=== PATIENT | female | born 1980 | race Caucasian/White ===

== ENCOUNTER 2017-05-09 12:38 | Inpatient (IN) | payer SELFPAY ==
[2017-05-09] MEDS ORDERED: ASPIRIN PO ONE (12:52)
[2017-05-09] MEDS ORDERED: MORPHINE IV ONE (13:24)
[2017-05-09] MEDS ORDERED: NACL 0.9% 1000 ML 1,000 ML IV ONE ×2 (13:24→13:25)
[2017-05-09] MEDS ORDERED: ZOFRAN IV ONE (13:24)
--- NOTE | 2017-05-09 13:30 | Emergency Department Report ---
ED General Adult HPI - General Chief complaint: Chest Pain Stated complaint: ABDOMINAL PAIN,SOB Time Seen by Provider: 05/09/17 13:18 Source: patient Mode of arrival: Ambulatory Limitations: No Limitations - History of Present Illness Initial comments: Patient is 36 years old female history of type 1 diabetes, on insulin, she missed taking insulin for 2-3 days, she just got her insulin back yesterday. Patient presented to the ER with nausea vomiting and chest pain associated with abdominal pain. Patient denied any fever, no cough, no urinary symptoms. -: Gradual, days(s) Radiation: abdomen Severity scale (0 -10): 8 Consistency: constant Associated Symptoms: chest pain - Related Data Home Medications Medication Instructions Recorded Confirmed Last Taken No Known Home Medications [No 05/09/17 05/09/17 Unknown Reported Home Medications] Allergies Allergy/AdvReac Type Severity Reaction Status Date / Time No Known Allergies Allergy Unverified 05/09/17 12:51 ED Review of Systems ROS: Stated complaint: ABDOMINAL PAIN,SOB Other details as noted in HPI Comment: All other systems reviewed and negative Constitutional: denies: chills, fever Respiratory: denies: cough, orthopnea, shortness of breath, SOB with exertion, SOB at rest, wheezing Cardiovascular: chest pain, palpitations. denies: dyspnea on exertion, orthopnea, edema, syncope, paroxysmal nocturnal dyspnea Gastrointestinal: abdominal pain, nausea, vomiting. denies: diarrhea, constipation, hematemesis, melena, hematochezia Musculoskeletal: denies: back pain, joint swelling Neurological: weakness (generalized). denies: headache, numbness, paresthesias ED Past Medical Hx - Past Medical History Previous Medical History?: No - Surgical History Past Surgical History?: No - Social History Smoking Status: Never Smoker - Medications Home Medications: Home Medications Medication Instructions Recorded Confirmed Last Taken Type No Known Home Medications [No 05/09/17 05/09/17 Unknown History Reported Home Medications] ED Physical Exam - General Limitations: No Limitations General appearance: anxious - Head Head exam: Present: atraumatic, normal inspection - Eye Eye exam: Present: normal appearance, PERRL - ENT ENT exam: Present: normal exam, normal orophraynx, mucous membranes dry - Neck Neck exam: Present: normal inspection, full ROM - Respiratory Respiratory exam: Present: normal lung sounds bilaterally. Absent: respiratory distress, wheezes, rales, rhonchi, chest wall tenderness, accessory muscle use, decreased breath sounds, prolonged expiratory - Cardiovascular Cardiovascular Exam: Present: tachycardia - GI/Abdominal GI/Abdominal exam: Present: soft, normal bowel sounds. Absent: distended, tenderness, guarding, rebound, rigid, organomegaly, mass, bruit, pulsatile mass , hernia - Extremities Exam Extremities exam: Present: normal inspection, full ROM, normal capillary refill - Back Exam Back exam: Present: normal inspection, full ROM. Absent: tenderness, CVA tenderness (R), CVA tenderness (L), muscle spasm, paraspinal tenderness, vertebral tenderness - Neurological Exam Neurological exam: Present: alert, oriented X3, CN II-XII intact, normal gait, reflexes normal. Absent: motor sensory deficit - Skin Skin exam: Present: warm, dry, normal color ED Course Vital Signs 05/09/17 05/09/17 05/09/17 13:06 15:54 16:01 Pulse Rate 138 H 108 H 144 H Respiratory 24 29 H 26 H Rate Blood Pressure Blood Pressure 136/69 [Right] O2 Sat by Pulse 100 100 Oximetry 05/09/17 05/09/17 05/09/17 16:15 16:45 17:00 Pulse Rate 151 H 143 H Respiratory 38 H 31 H Rate Blood Pressure Blood Pressure [Right] O2 Sat by Pulse 99 100 100 Oximetry 05/09/17 05/09/17 05/09/17 17:15 17:31 17:45 Pulse Rate 139 H 144 H 142 H Respiratory 26 H 29 H 30 H Rate Blood Pressure Blood Pressure [Right] O2 Sat by Pulse 100 99 100 Oximetry 05/09/17 05/09/17 05/09/17 18:00 18:15 18:30 Pulse Rate 138 H 141 H 143 H Respiratory 29 H 33 H 31 H Rate Blood Pressure 160/79 160/79 157/70 Blood Pressure [Right] O2 Sat by Pulse 100 100 100 Oximetry 05/09/17 05/09/17 05/09/17 18:45 19:01 19:15 Pulse Rate 142 H 142 H 148 H Respiratory 33 H 23 26 H Rate Blood Pressure 156/63 153/82 153/82 Blood Pressure [Right] O2 Sat by Pulse 99 100 96 Oximetry 05/09/17 05/09/17 05/09/17 19:31 19:45 20:00 Pulse Rate 148 H 148 H 142 H Respiratory 32 H 31 H 28 H Rate Blood Pressure 153/82 153/82 122/102 Blood Pressure [Right] O2 Sat by Pulse 100 100 99 Oximetry 05/09/17 05/09/17 05/09/17 20:15 20:30 20:45 Pulse Rate 145 H 147 H 149 H Respiratory 27 H 24 36 H Rate Blood Pressure 122/102 136/56 136/56 Blood Pressure [Right] O2 Sat by Pulse 100 100 100 Oximetry 05/09/17 05/09/17 05/09/17 21:01 21:15 21:31 Pulse Rate 143 H 143 H 151 H Respiratory 30 H 27 H 27 H Rate Blood Pressure 143/57 143/57 115/51 Blood Pressure [Right] O2 Sat by Pulse 100 99 100 Oximetry 05/09/17 05/09/17 05/09/17 21:45 22:01 22:57 Pulse Rate 152 H 144 H 151 H Respiratory 34 H 25 H 30 H Rate Blood Pressure 115/51 115/51 Blood Pressure [Right] O2 Sat by Pulse 100 100 Oximetry 05/09/17 05/09/17 05/09/17 23:00 23:15 23:31 Pulse Rate 151 H 151 H 147 H Respiratory 31 H 31 H 24 Rate Blood Pressure 153/82 Blood Pressure [Right] O2 Sat by Pulse Oximetry 05/09/17 05/10/17 05/10/17 23:45 00:01 00:15 Pulse Rate 154 H 151 H 155 H Respiratory 19 27 H 31 H Rate Blood Pressure Blood Pressure [Right] O2 Sat by Pulse Oximetry ED Medical Decision Making - Lab Data Result diagrams: 05/10/17 05:00 05/10/17 05:00 - EKG Data -: EKG Interpreted by Mn EKG shows normal: sinus rhythm Rate: tachycardia - EKG Data Interpretation: no acute changes - Radiology Data Radiology results: report reviewed Referring Physician: MADI MUHAMMAD Patient Name: ANTHONY PHAM Date of : 1980 Sex: Female Report Date: 2017-05-09 Report Status: Finalized Findings [facility] [address] [place] [address] XRay Report Signed Patient: ANTHONY PHAM MR#: [id number] : 1980 Acct:[id number] Age/Sex: 36 / F ADM Date: 05/09/17 Loc: ED Attending Dr: Ordering Physician: MADI MUHAMMAD Date of Service: 05/09/17 Procedure(s): XR chest 1V ap Accession Number(s): [id number] cc: MADI MUHAMMAD Fluoro Time In Minutes: AP CHEST: HISTORY: chest pain AP view of the chest demonstrates a normal mediastinal and cardiac contour with clear lungs and normal bony and soft tissue structures. IMPRESSION: Unremarkable AP chest. Transcribed By: TTR Dictated By: ANN MARCUM JR, MD Electronically Authenticated By: ANN MARCUM JR, MD Signed Date/Time: 05/09/171427 DD/ 27 TD/TT: 05/09/171427 - Medical Decision Making I discussed patient with Dr. Breaux, I have presented the patient to him,he agreed to admit the patient to his service Critical Care Time: Yes Critical care time in (mins) excluding proc time.: 35 Critical care attestation.: If time is entered above; I have spent that time in minutes in the direct care of this critically ill patient, excluding procedure time. ED Disposition Clinical Impression: DKA (diabetic ketoacidoses) Disposition: OP ADMIT IP TO THIS HOSP Is pt being admited?: Yes Condition: Stable
[2017-05-09 14:05] LABS: BUN/Creatinine Ratio 19; Blood Urea Nitrogen 15 mg/dL (7-17); Calcium 8.4 mg/dL (8.4-10.2); Hemolysis Index 11
[2017-05-09] MEDS ORDERED: D50W (25GM) Syringe IV PRN ×2 (14:18→15:34)
--- NOTE | 2017-05-09 14:34 | XRay Report ---
AP CHEST: HISTORY: chest pain AP view of the chest demonstrates a normal mediastinal and cardiac contour with clear lungs and normal bony and soft tissue structures. IMPRESSION: Unremarkable AP chest.
[2017-05-09 15:03] LABS: Mean Corpuscular HGB Conc 30 % (30-34); Mean Corpuscular Hemoglobin 26 pg (28-32); Mean Corpuscular Volume 87 fl (79-97); Platelet Count 402 K/mm3 (140-440); Red Blood Count 5.71 M/mm3 (3.65-5.03)
[2017-05-09 15:04] LABS: Hematocrit 49.5 % (30.3-42.9)
[2017-05-09 15:16] LABS: Magnesium 2.3 mg/dL (1.7-2.3)
[2017-05-09 15:27] LABS: BUN/Creatinine Ratio 20; Blood Urea Nitrogen 16 mg/dL (7-17); Calcium 8.7 mg/dL (8.4-10.2); Hemolysis Index 53
[2017-05-09] MEDS ORDERED: NACL 0.9% 1000 ML 3,000 ML IV ONE (15:34)
[2017-05-09] MEDS ORDERED: MILK OF MAGNESIA PO PRN (15:36)
[2017-05-09] MEDS ORDERED: DULCOLAX PR PRN (15:36)
[2017-05-09] MEDS ORDERED: ALUM-MAG HYDROX-SIMETH 200-200-20MG/5ML PO PRN (15:36)
[2017-05-09] MEDS ORDERED: D5W/0.45% NACL/KCL 20 MEQ 20 MEQ/1,000 ML BAG IV SCH (16:00)
[2017-05-09 16:02] LABS: Band Neutrophils # (Manual) 0.3 K/mm3; Basophils % (Manual) 0 % (0.0-1.8); Eosinophils % (Manual) 0 % (0.0-4.3); Total Cells Counted 100
[2017-05-09 16:03] LABS: Giant Platelets Rare; Toxic Vacuolation Few
[2017-05-09 16:04] LABS: Platelet Estimate Cons
[2017-05-09] MEDS: NovoLIN R 100 UNITS in NACL 0.9% 99 ML IV SCH (16:45)
--- NOTE | 2017-05-09 16:59 | History and Physical Report ---
History of Present Illness Date of examination: 05/09/17 Date of admission: 05/09/17 Chief complaint: DKA History of present illness: Patient is a 36 year old female who is 2 months post and with hx of type 1 DM presenting to the ER with nausea, vomiting, chest pain and abdominal pain.. Most information obtained from the patient chart and also limited from patient and due to patients clinical condition. Although the ED documentation reports that patient missed 2-3 days of insulin. The patients states she took insulin yesterday. Her chest pain and abdominal pain she states started following nausea with vomiting. she rates it a 3/10 in intensity with no radiation. She rfeports no other medical condition but unable to give me information on her labor and delivery due to her shortness of breath. She denies any fever, sick contact, diarrhea, blurry vision, polyurea or polydipsa Past History Past Medical History: diabetes Past Surgical History: No surgical history Social history: . denies: smoking, alcohol abuse, prescription drug abuse Family history: diabetes Medications and Allergies Allergies Allergy/AdvReac Type Severity Reaction Status Date / Time No Known Allergies Allergy Unverified 05/09/17 12:51 Home Medications Medication Instructions Recorded Confirmed Last Taken Type No Known Home Medications [No 05/09/17 05/09/17 Unknown History Reported Home Medications] Active Meds: Active Medications Al Hydrox/Mg Hydrox/Simethicone (Alum-Mag Hydrox-Simeth 053-004-66is/5ml) 30 ml PO Q4H PRN PRN Reason: Indigestion Bisacodyl (Dulcolax) 10 mg UT QDAY PRN PRN Reason: constipation unrelieved by MOM Dextrose (D50w (25gm) Syringe) 0 ml IV PRN PRN PRN Reason: Hypoglycemia Dextrose (D50w (25gm) Syringe) 0 ml IV PRN PRN PRN Reason: Hypoglycemia Heparin Sodium (Porcine) (Heparin) 5,000 unit SUB-Q Q8HR MAYTE Insulin Human Regular 100 (units/ Sodium Chloride) 100 mls @ 1 mls/hr IV TITR MAYTE; 1 UNITS/HR PRN Reason: Protocol Piperacillin Sod/Tazobactam Sod (Zosyn/Ns 3.375gm/50ml) 3.375 gm in 50 mls @ 100 mls/hr IV Q6HR MAYTE Potassium Chloride/Dextrose/Sod Cl (D5w/0.45% Nacl/Kcl 20 Meq) 20 meq in 1,000 mls @ 125 mls/hr IV DIRECT MAYTE Sodium Chloride (Nacl 0.9% 1000 Ml) 3,000 mls @ 999 mls/hr IV BOLUS ONE Stop: 05/09/17 18:34 Insulin Human Regular 100 (units/ Sodium Chloride) 100 mls @ 1 mls/hr IV TITR MAYTE; 1 UNITS/HR PRN Reason: Protocol Magnesium Hydroxide (Milk Of Magnesia) 30 ml PO Q4H PRN PRN Reason: Constipation Review of Systems All systems: negative Constitutional: weakness, malaise, lethargy Ears, nose, mouth and throat: no ear discharge, no nasal congestion, no nasal discharge, no sinus pressure, no mouth pain, no dysphagia, no sore throat Cardiovascular: palpitations, lightheadedness, shortness of breath Respiratory: no cough, no cough with sputum, no excessive sputum Gastrointestinal: abdominal pain, nausea, vomiting, no diarrhea Musculoskeletal: no neck stiffness, no neck pain, no shooting arm pain, no arm numbness/tingling, no low back pain, no leg numbness/tingling Endocrine: no polyphagia, no excessive thirst, no polydipsia, no polyuria Hematologic/Lymphatic: no easy bruising Exam - Physical Exam Narrative exam: VITAL SIGNS: Reviewed. GENERAL: The patient appeared well nourished and normally developed. Vital signs as documented. HEAD: No signs of head trauma. EYES: Pupils are equal. Extraocular motions intact. EARS: Hearing grossly intact. MOUTH: Oropharynx is normal. NECK: No adenopathy, no JVD. CHEST: tachypnea Chest with clear breath sounds bilaterally. No wheezes, rales , or rhonchi. CARDIAC: Tachycardia rate and rhythm. S1 and S2, without murmurs, gallops, or rubs. VASCULAR: No Edema. Peripheral pulses normal and equal in all extremities. ABDOMEN: Soft, without detectable tenderness. No sign of distention. No rebound or guarding, and no masses palpated. Bowel Sounds normal. MUSCULOSKELETAL: Good range of motion of all major joints. Extremities without clubbing, cyanosis or edema. NEUROLOGIC EXAM: Alert and oriented x 3. No focal sensory or strength deficits. Speech normal. Follows commands. PSYCHIATRIC: Mood anxious SKIN: No rash or lesions. - Constitutional Vitals: Temp Pulse Resp BP Pulse Ox 138 H 24 136/69 100 05/09/17 13:06 05/09/17 13:06 05/09/17 13:06 05/09/17 13:06 Results - Labs CBC & Chem 7: 05/09/17 14:40 05/09/17 18:44 Labs: Laboratory Last Values WBC 32.8 K/mm3 (4.5-11.0) H 05/09/17 14:40 RBC 5.71 M/mm3 (3.65-5.03) H 05/09/17 14:40 Hgb 15.0 gm/dl (10.1-14.3) H 05/09/17 14:40 Hct 49.5 % (30.3-42.9) H 05/09/17 14:40 MCV 87 fl (79-97) 05/09/17 14:40 MCH 26 pg (28-32) L 05/09/17 14:40 MCHC 30 % (30-34) 05/09/17 14:40 RDW 14.0 % (13.2-15.2) 05/09/17 14:40 Plt Count 402 K/mm3 (140-440) 05/09/17 14:40 Lymph % (Auto) Retail Operations Manager 05/09/17 14:40 Keith % (Auto) Retail Operations Manager 05/09/17 14:40 Eos % (Auto) Retail Operations Manager 05/09/17 14:40 Baso % (Auto) Retail Operations Manager 05/09/17 14:40 Lymph # Retail Operations Manager 05/09/17 14:40 Keith # Retail Operations Manager 05/09/17 14:40 Eos # Retail Operations Manager 05/09/17 14:40 Baso # Retail Operations Manager 05/09/17 14:40 Add Manual Diff Complete 05/09/17 14:40 Total Counted 100 05/09/17 14:40 Seg Neutrophils % Retail Operations Manager 05/09/17 14:40 Seg Neuts % (Manual) 83.0 % (40.0-70.0) H 05/09/17 14:40 Band Neutrophils % 1.0 % 05/09/17 14:40 Lymphocytes % (Manual) 8.0 % (13.4-35.0) L 05/09/17 14:40 Reactive Lymphs % (Man) 0 % 05/09/17 14:40 Monocytes % (Manual) 8.0 % (0.0-7.3) H 05/09/17 14:40 Eosinophils % (Manual) 0 % (0.0-4.3) 05/09/17 14:40 Basophils % (Manual) 0 % (0.0-1.8) 05/09/17 14:40 Metamyelocytes % 0 % 05/09/17 14:40 Myelocytes % 0 % 05/09/17 14:40 Promyelocytes % 0 % 05/09/17 14:40 Blast Cells % 0 % 05/09/17 14:40 Nucleated RBC % Not Reportable 05/09/17 14:40 Seg Neutrophils # Retail Operations Manager 05/09/17 14:40 Seg Neutrophils # Man 27.2 K/mm3 (1.8-7.7) H 05/09/17 14:40 Band Neutrophils # 0.3 K/mm3 05/09/17 14:40 Lymphocytes # (Manual) 2.6 K/mm3 (1.2-5.4) 05/09/17 14:40 Abs React Lymphs (Man) 0.0 K/mm3 05/09/17 14:40 Monocytes # (Manual) 2.6 K/mm3 (0.0-0.8) H 05/09/17 14:40 Eosinophils # (Manual) 0.0 K/mm3 (0.0-0.4) 05/09/17 14:40 Basophils # (Manual) 0.0 K/mm3 (0.0-0.1) 05/09/17 14:40 Metamyelocytes # 0.0 K/mm3 05/09/17 14:40 Myelocytes # 0.0 K/mm3 05/09/17 14:40 Promyelocytes # 0.0 K/mm3 05/09/17 14:40 Blast Cells # 0.0 K/mm3 05/09/17 14:40 WBC Morphology Not Reportable 05/09/17 14:40 Hypersegmented Neuts Not Reportable 05/09/17 14:40 Hyposegmented Neuts Not Reportable 05/09/17 14:40 Hypogranular Neuts Not Reportable 05/09/17 14:40 Smudge Cells Not Reportable 05/09/17 14:40 Toxic Granulation Not Reportable 05/09/17 14:40 Toxic Vacuolation Few 05/09/17 14:40 Dohle Bodies Not Reportable 05/09/17 14:40 Pelger-Huet Anomaly Not Reportable 05/09/17 14:40 Yennifer Rods Not Reportable 05/09/17 14:40 Platelet Estimate Cons 05/09/17 14:40 Clumped Platelets Not Reportable 05/09/17 14:40 Plt Clumps, EDTA Not Reportable 05/09/17 14:40 Large Platelets Not Reportable 05/09/17 14:40 Giant Platelets Rare 05/09/17 14:40 Platelet Satelliting Not Reportable 05/09/17 14:40 Plt Morphology Comment Not Reportable 05/09/17 14:40 RBC Morphology Not Reportable 05/09/17 14:40 Dimorphic RBCs Not Reportable 05/09/17 14:40 Polychromasia Not Reportable 05/09/17 14:40 Hypochromasia Not Reportable 05/09/17 14:40 Poikilocytosis Not Reportable 05/09/17 14:40 Anisocytosis Not Reportable 05/09/17 14:40 Microcytosis Not Reportable 05/09/17 14:40 Macrocytosis Not Reportable 05/09/17 14:40 Spherocytes Not Reportable 05/09/17 14:40 Pappenheimer Bodies Not Reportable 05/09/17 14:40 Sickle Cells Not Reportable 05/09/17 14:40 Target Cells Not Reportable 05/09/17 14:40 Tear Drop Cells Not Reportable 05/09/17 14:40 Ovalocytes Not Reportable 05/09/17 14:40 Helmet Cells Not Reportable 05/09/17 14:40 Witt-Mccoll Bodies Not Reportable 05/09/17 14:40 [place] Rings Not Reportable 05/09/17 14:40 Ulysses Cells Not Reportable 05/09/17 14:40 Bite Cells Not Reportable 05/09/17 14:40 Crenated Cell Not Reportable 05/09/17 14:40 Elliptocytes Not Reportable 05/09/17 14:40 Acanthocytes (Spur) Not Reportable 05/09/17 14:40 Rouleaux Not Reportable 05/09/17 14:40 Hemoglobin C Crystals Not Reportable 05/09/17 14:40 Schistocytes Not Reportable 05/09/17 14:40 Malaria parasites Not Reportable 05/09/17 14:40 Abisai Bodies Not Reportable 05/09/17 14:40 Hem Pathologist Commnt No 05/09/17 14:40 D-Dimer 481.41 ng/mlDDU (0-234) H 05/09/17 14:40 Sodium 140 mmol/L (137-145) 05/09/17 14:40 Potassium 5.2 mmol/L (3.6-5.0) H 05/09/17 14:40 Chloride 98.6 mmol/L (98-107) 05/09/17 14:40 Carbon Dioxide 3 mmol/L (22-30) L* 05/09/17 14:40 Anion Gap 44 mmol/L 05/09/17 14:40 BUN 16 mg/dL (7-17) 05/09/17 14:40 Creatinine 0.8 mg/dL (0.7-1.2) 05/09/17 14:40 Estimated GFR > 60 ml/min 05/09/17 14:40 BUN/Creatinine Ratio 20 % 05/09/17 14:40 Glucose 343 mg/dL (65-100) H 05/09/17 14:40 POC Glucose 334 (70-105) H 05/09/17 16:42 Calcium 8.7 mg/dL (8.4-10.2) 05/09/17 14:40 Phosphorus 6.70 mg/dL (2.5-4.5) H 05/09/17 14:40 Magnesium 2.30 mg/dL (1.7-2.3) 05/09/17 14:40 Troponin T < 0.010 ng/mL (0.00-0.029) 05/09/17 14:40 HCG, Qual Negative (Negative) 05/09/17 14:40 - Imaging and Cardiology Chest x-ray: image reviewed (no acute pathology) Assessment and Plan Assessment and plan: Patient is a 36 year old female who is 2 months post and with hx of type 1 DM presenting to the ER with nausea, vomiting, chest pain and abdominal pain.. Most information obtained from the patient chart and also limited from patient and due to patients clinical condition. Although the ED documentation reports that patient missed 2-3 days of insulin. The patients states she took insulin yesterday. Her chest pain and abdominal pain she states started following nausea with vomiting. she rates it a 3/10 in intensity with no radiation. She rfeports no other medical condition but unable to give me information on her labor and delivery due to her shortness of breath. DKA Uncontrolled DM with hyperglycemia Acute Respiratory failure Severe Metabolic Acidosis SIRS secondary to DKA Hypertryglycerdemia 2 months post Plan: Admit to ICU DKA protocol, Q1H ACCUCHECKS, Insulin Drip. Replace Electrolytes Start on Bicarb Drip Critical care consult Give 3 Additional liters of fluids Continue Abx Check cook cultures ct CHEST R/O PE DVT/GI prophy Case discussed in detail with patient and spouse. The high probability of a clinically significant, sudden or life threatening deterioration of the [pulmonary, Endocrine ] system(s) required my full and direct attention, intervention and personal management. The aggregate critical care time was [35] minutes. This time is in addition to time spent performing reported procedures but includes the following: [x] Data Review and interpretation [x] Patient assessment and monitoring of vital signs [x] Documentation [x] Medication orders and management Advance Directives: Yes Plan of care discussed with patient/family: Yes
[2017-05-09] MEDS: ZOSYN/NS 3.375GM/50ML 3.375 GM/50 ML BAG IV SCH (18:50)
[2017-05-09 18:56] LABS: Bacteria,Urine 1+ /HPF (Negative); Bilirubin,Urine NEG (Negative); Blood,Urine SM (Negative); Color,Urine Yellow (Yellow); Mucus,Urine FEW /HPF; Nitrite,Urine NEG (Negative); Urobilinogen,Urine < 2.0 mg/dL (<2.0)
[2017-05-09] MEDS ORDERED: SODIUM BICARBONATE IV SCH ×4 (19:00→20:00)
[2017-05-09] MEDS ORDERED: SODIUM BICARBONATE IV ONE (19:02)
[2017-05-09 19:17] LABS: Microalbumin/Creatinine Ratio 1286.6 ug/mg
[2017-05-09 19:32] LABS: BUN/Creatinine Ratio 24; Blood Urea Nitrogen 19 mg/dL (7-17); Chol/HDL Ratio 4.91 %; HDL Cholesterol 47 mg/dL (40-59); Hemolysis Index 24; LDL Cholesterol,Direct TNR mg/dL (50-130)
[2017-05-09] MEDS ORDERED: NOVOLOG SUB-Q ONE (20:00)
[2017-05-09] MEDS ORDERED: VANCOMYCIN VIAL IV ONE (20:41)
[2017-05-09] MEDS ORDERED: SODIUM BICARBONATE 50 MEQ in NACL 0.9% 1000 ML 1,000 ML IV SCH (21:00)
[2017-05-09] MEDS ORDERED: VANCOMYCIN PHARMACY TO DOSE IV SCH (21:00)
[2017-05-09] MEDS ORDERED: VANCOMYCIN 1,250 MG in NACL 0.9% 250ML 250 ML IV ONE (21:15)
[2017-05-09 21:20] LABS: BUN/Creatinine Ratio 20; Blood Urea Nitrogen 18 mg/dL (7-17); Calcium 7.7 mg/dL (8.4-10.2); Hemolysis Index 7
--- NOTE | 2017-05-09 23:03 | Cat Scan Report ---
FINAL REPORT PROCEDURE: CT ABDOMEN PELVIS W CON TECHNIQUE: Computerized axial tomography of the abdomen and pelvis was performed after the IV injection of iodinated nonionic contrast. HISTORY: PE COMPARISON: No prior studies are available for comparison. FINDINGS: Visualized lower thorax: No significant abnormality. Liver: Normal size and attenuation. Spleen: Normal size and attenuation. Gallbladder and biliary system: Normal. Pancreas: Normal. Adrenals: Normal. Kidneys: Normal. GI tract: There is no bowel obstruction, colitis or enteritis. The appendix is normal.. Lymph nodes and mesentery: Normal. Vasculature: Normal. Bladder: Normal. Reproductive organs: The uterus is normal in size. There is a 3 centimeter fibroid in the uterine fundus. There is a 2 centimeter cyst in the left ovary.. Peritoneum: There is no ascites or free air, abscess or adenopathy.. Musculoskeletal structures: No significant abnormality. Other: None. IMPRESSION: There is no bowel obstruction, colitis or enteritis. The appendix is normal.. The uterus is normal in size. There is a 3 centimeter fibroid in the uterine fundus. There is a 2 centimeter cyst in the left ovary.. There is no ascites or free air, abscess or adenopathy..
--- NOTE | 2017-05-09 23:04 | Cat Scan Report ---
FINAL REPORT PROCEDURE: CT ANGIO CHEST TECHNIQUE: Computerized axial tomographic angiography of the chest and pulmonary arteries was performed after the IV injection of iodinated nonionic contrast. The image data was postprocessed using maximum intensity projection (MIP) and 2-dimensional multiplanar reformatted (MPR) techniques. The examination is specifically tailored to the evaluation of the pulmonary arteries per clinical request. HISTORY: Short of breath 786.09, chest pain 786.50, PE COMPARISON: No prior studies are available for comparison. FINDINGS: Heart and pericardium: Normal. Thoracic aorta: Normal. Pulmonary vasculature: Normal. No pulmonary emboli. Lymph nodes: No enlarged thoracic lymph nodes. Lungs: Lungs are clear and expanded.. Pleural space: No effusion, thickening, or pneumothorax. Musculoskeletal structures: No significant abnormality. Upper abdominal structures: No significant abnormality. IMPRESSION: There is no demonstrated pulmonary embolism. There is no thoracic aortic aneurysm or dissection.. Lungs are clear.
[2017-05-09 23:54] LABS: BUN/Creatinine Ratio 20; Blood Urea Nitrogen 20 mg/dL (7-17); Calcium 7.7 mg/dL (8.4-10.2); Hemolysis Index 0
[2017-05-10] MEDS ORDERED: SODIUM BICARBONATE IV ONE (01:20)
[2017-05-10] MEDS ORDERED: SODIUM BICARBONATE PEDIATRIC ONE (01:21)
[2017-05-10] MEDS: ZOSYN/NS 3.375GM/50ML 3.375 GM/50 ML BAG IV SCH ×2 (04:03→06:48)
[2017-05-10] MEDS: HEPARIN SUB-Q SCH ×3 (04:04→22:00)
[2017-05-10] MEDS: SODIUM BICARBONATE IV SCH ×2 (04:40→04:45)
[2017-05-10 05:42] LABS: Mean Corpuscular HGB Conc 30 % (30-34); Mean Corpuscular Volume 85 fl (79-97); Platelet Count 213 K/mm3 (140-440); Red Blood Count 5.27 M/mm3 (3.65-5.03)
[2017-05-10 05:43] LABS: Hemoglobin 13.7 gm/dl (10.1-14.3); Mean Corpuscular Hemoglobin 26 pg (28-32)
[2017-05-10 05:54] LABS: Calcium 7.7 mg/dL (8.4-10.2)
[2017-05-10] MEDS: NovoLIN R 100 UNITS in NACL 0.9% 99 ML IV SCH ×2 (06:15→15:32)
[2017-05-10 08:06] LABS: Calcium 7.8 mg/dL (8.4-10.2)
[2017-05-10] MEDS ORDERED: ZOFRAN IV ONE (10:20)
[2017-05-10] MEDS ORDERED: ZOFRAN ONE (10:22)
[2017-05-10] MEDS: VANCOMYCIN/NS 1 GM/250 ML 1 GM/250 ML BAG IV SCH ×2 (10:30→23:00)
--- NOTE | 2017-05-10 16:33 | Consultation ---
History of Present Illness Consult date: 05/10/17 Consult reason: tachycardia History of present illness: This patient is a 36-year-old woman who was presented to the hospital acutely ill. She has a white count of 32,000 on presentation, which has increased to 41 ,000. Her CO2 was only 3, consistent with severe metabolic acidosis. Glucose level was 343. On my review of the record, there are no temperature measurements recorded on this patient, but the rest of the clinical picture appears consistent with sepsis and severe metabolic acidosis. During her causing the emergency room, she has maintained a persistent sinus tachycardia, which prompted a cardiology consultation. The medical service also ordered an echocardiogram, which demonstrated well-preserved left ventricular systolic function with ejection fraction 55%. EKG is a sinus tachycardia at 140, otherwise normal ECG. Patient has no prior cardiac history. Past History Past Medical History: diabetes Past Surgical History: No surgical history Social history: . denies: smoking, alcohol abuse, prescription drug abuse Family history: diabetes Medications and Allergies Allergies Allergy/AdvReac Type Severity Reaction Status Date / Time No Known Allergies Allergy Unverified 05/09/17 12:51 Home Medications Medication Instructions Recorded Confirmed Last Taken Type No Known Home Medications [No 05/09/17 05/09/17 Unknown History Reported Home Medications] Active Meds: Active Medications Al Hydrox/Mg Hydrox/Simethicone (Alum-Mag Hydrox-Simeth 709-158-54qt/5ml) 30 ml PO Q4H PRN PRN Reason: Indigestion Bisacodyl (Dulcolax) 10 mg FL QDAY PRN PRN Reason: constipation unrelieved by MOM Dextrose (D50w (25gm) Syringe) 0 ml IV PRN PRN PRN Reason: Hypoglycemia Heparin Sodium (Porcine) (Heparin) 5,000 unit SUB-Q Q8HR MAYTE Last Admin: 05/10/17 07:41 Dose: Not Given Piperacillin Sod/Tazobactam Sod (Zosyn/Ns 3.375gm/50ml) 3.375 gm in 50 mls @ 100 mls/hr IV Q6HR MAYTE Last Admin: 05/10/17 06:48 Dose: 100 mls/hr Potassium Chloride/Dextrose/Sod Cl (D5w/0.45% Nacl/Kcl 20 Meq) 20 meq in 1,000 mls @ 125 mls/hr IV DIRECT MAYTE Last Admin: 05/10/17 06:40 Dose: 125 mls/hr Insulin Human Regular 100 (units/ Sodium Chloride) 100 mls @ 1 mls/hr IV TITR MAYTE; 1 UNITS/HR PRN Reason: Protocol Sodium Bicarbonate 50 meq/ (Sodium Chloride) 1,050 mls @ 100 mls/hr IV DIRECT MAYTE Last Admin: 05/10/17 10:26 Dose: 100 mls/hr Vancomycin HCl (Vancomycin/Ns 1 Gm/250 Ml) 1 gm in 250 mls @ 166.667 mls/hr IV Q12H MAYTE Last Admin: 05/10/17 10:30 Dose: Not Given Magnesium Hydroxide (Milk Of Magnesia) 30 ml PO Q4H PRN PRN Reason: Constipation Vancomycin HCl (Vancomycin Pharmacy To Dose) 1 each IV PKCONSULT MAYTE PRN Reason: Protocol Last Admin: 05/10/17 07:30 Dose: 1 each Review of Systems ROS unobtainable: due to mental status Physical Examination Vital Signs Pulse Resp BP Pulse Ox 138 H 24 136/69 100 05/09/17 13:06 05/09/17 13:06 05/09/17 13:06 05/09/17 13:06 General appearance: mild distress, other (patient is stuporous, but no acute respiratory distress) HEENT: Positive: PERRL Neck: Positive: neck supple Cardiac: Positive: Regular Rhythm Lungs: Positive: Decreased Breath Sounds Neuro: Positive: Grossly Intact Abdomen: Positive: Soft Female genitourinary: deferred Skin: Positive: Clear Extremities: Absent: edema Results 05/10/17 05:00 05/10/17 07:29 Lipids 05/09/17 Range/Units 18:44 Triglycerides 575 H (2-149) mg/dL Cholesterol 231 H (50-199) mg/dL HDL Cholesterol 47 (40-59) mg/dL Cholesterol/HDL Ratio 4.91 % CBC 05/10/17 Range/Units 05:00 WBC 41.8 H* (4.5-11.0) K/mm3 RBC 5.27 H (3.65-5.03) M/mm3 Hgb 13.7 (10.1-14.3) gm/dl Hct 45.0 H (30.3-42.9) % Plt Count 213 (140-440) K/mm3 Comprehensive Metabolic Panel 01/01/1605/09/17 05/09/17 Range/Units 18:44 21:00 23:06 Sodium 139 139 141 (137-145) mmol/L Potassium 4.6 4.3 3.7 (3.6-5.0) mmol/L Chloride 98.4 101.4 105.5 (98-107) mmol/L Carbon Dioxide 3 L* 4 L* 5 L* (22-30) mmol/L BUN 19 H 18 H 20 H (7-17) mg/dL Creatinine 0.8 0.9 1.0 (0.7-1.2) mg/dL Glucose 454 H 443 H 305 H (65-100) mg/dL Calcium 8.0 L 7.7 L 7.7 L (8.4-10.2) mg/dL 05/10/17 05/10/17 Range/Units 05:00 07:29 Sodium 139 140 (137-145) mmol/L Potassium 4.6 D 3.3 L D (3.6-5.0) mmol/L Chloride 99.3 101.1 (98-107) mmol/L Carbon Dioxide 4 L* 4 L* (22-30) mmol/L BUN 23 H 21 H (7-17) mg/dL Creatinine 1.1 1.1 (0.7-1.2) mg/dL Glucose 268 H 271 H (65-100) mg/dL Calcium 7.7 L 7.8 L (8.4-10.2) mg/dL EKG interpretations - Telemetry EKG Rhythm: Sinus Tachycardia Assessment and Plan - Patient Problems (1) Sinus tachycardia Current Visit: Yes Status: Acute Plan to address problem: Sinus tachycardia is a physiologic response to the patient's acute sepsis and severe metabolic acidosis. 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 No further cardiac workup or specific treatment for sinus tachycardia is necessary.
[2017-05-10 16:49] LABS: BUN/Creatinine Ratio 21; Blood Urea Nitrogen 21 mg/dL (7-17); Calcium 7.9 mg/dL (8.4-10.2); Hemolysis Index 85
--- NOTE | 2017-05-10 18:27 | Consultation ---
History of Present Illness Consult date: 05/10/17 Requesting physician: CRISTAL SOOD History of present illness: Patient is a 36 year old female who is 2 months post and with hx of type 1 DM presenting to the ER with nausea, vomiting, chest pain and abdominal pain.. Most information obtained from the patient chart and also limited from patient and due to patients clinical condition. Although the ED documentation reports that patient missed 2-3 days of insulin. The patients states she took insulin yesterday. Her chest pain and abdominal pain she states started following nausea with vomiting. she rates it a 3/10 in intensity with no radiation. She rfeports no other medical condition but unable to give me information on her labor and delivery due to her shortness of breath. She denies any fever, sick contact, diarrhea, blurry vision, polyurea or polydipsa Past History Past Medical History: diabetes Past Surgical History: No surgical history Social history: . denies: smoking, alcohol abuse, prescription drug abuse Family history: diabetes Medications and Allergies Allergies Allergy/AdvReac Type Severity Reaction Status Date / Time No Known Allergies Allergy Unverified 05/09/17 12:51 Home Medications Medication Instructions Recorded Confirmed Last Taken Type No Known Home Medications [No 05/09/17 05/09/17 Unknown History Reported Home Medications] Active Meds: Active Medications Al Hydrox/Mg Hydrox/Simethicone (Alum-Mag Hydrox-Simeth 588-547-76qn/5ml) 30 ml PO Q4H PRN PRN Reason: Indigestion Bisacodyl (Dulcolax) 10 mg [place] QDAY PRN PRN Reason: constipation unrelieved by MOM Dextrose (D50w (25gm) Syringe) 0 ml IV PRN PRN PRN Reason: Hypoglycemia Heparin Sodium (Porcine) (Heparin) 5,000 unit SUB-Q Q8HR MAYTE Last Admin: 05/10/17 07:41 Dose: Not Given Piperacillin Sod/Tazobactam Sod (Zosyn/Ns 3.375gm/50ml) 3.375 gm in 50 mls @ 100 mls/hr IV Q6HR MAYTE Last Admin: 05/10/17 06:48 Dose: 100 mls/hr Potassium Chloride/Dextrose/Sod Cl (D5w/0.45% Nacl/Kcl 20 Meq) 20 meq in 1,000 mls @ 125 mls/hr IV DIRECT MAYTE Last Admin: 05/10/17 06:40 Dose: 125 mls/hr Insulin Human Regular 100 (units/ Sodium Chloride) 100 mls @ 1 mls/hr IV TITR MAYTE; 1 UNITS/HR PRN Reason: Protocol Last Titration: 05/10/17 17:15 Dose: 4 units/hr, 4 mls/hr Sodium Bicarbonate 50 meq/ (Sodium Chloride) 1,050 mls @ 100 mls/hr IV DIRECT MAYTE Last Admin: 05/10/17 10:26 Dose: 100 mls/hr Vancomycin HCl (Vancomycin/Ns 1 Gm/250 Ml) 1 gm in 250 mls @ 166.667 mls/hr IV Q12H MAYTE Last Admin: 05/10/17 10:30 Dose: Not Given Magnesium Hydroxide (Milk Of Magnesia) 30 ml PO Q4H PRN PRN Reason: Constipation Vancomycin HCl (Vancomycin Pharmacy To Dose) 1 each IV PKCONSULT MAYTE PRN Reason: Protocol Last Admin: 05/10/17 07:30 Dose: 1 each Physical Examination Vital signs: Vital Signs Pulse Resp BP Pulse Ox 138 H 24 136/69 100 05/09/17 13:06 05/09/17 13:06 05/09/17 13:06 05/09/17 13:06 VITAL SIGNS: Reviewed. GENERAL: The patient appeared well nourished and normally developed. Vital signs as documented. HEAD: No signs of head trauma. EYES: Pupils are equal. Extraocular motions intact. EARS: Hearing grossly intact. MOUTH: Oropharynx is normal. NECK: No adenopathy, no JVD. CHEST: tachypnea Chest with clear breath sounds bilaterally. No wheezes, rales , or rhonchi. CARDIAC: Tachycardia rate and rhythm. S1 and S2, without murmurs, gallops, or rubs. VASCULAR: No Edema. Peripheral pulses normal and equal in all extremities. ABDOMEN: Soft, without detectable tenderness. No sign of distention. No rebound or guarding, and no masses palpated. Bowel Sounds normal. MUSCULOSKELETAL: Good range of motion of all major joints. Extremities without clubbing, cyanosis or edema. NEUROLOGIC EXAM: Alert and oriented x 3. No focal sensory or strength deficits. Speech normal. Follows commands. PSYCHIATRIC: Mood anxious SKIN: No rash or lesions. Results - Laboratory Findings CBC and BMP: 05/10/17 05:00 05/10/17 15:42 ABG POC ABG pH 6.917 (7.35-7.45) L 05/10/17 13:25 POC ABG pCO2 13.1 (35-45) L 05/10/17 13:25 POC ABG pO2 118 (80-105) H 05/10/17 13:25 POC ABG HCO3 2.7 05/10/17 13:25 POC ABG Total CO2 < 5 05/10/17 13:25 POC ABG O2 Sat 95 05/10/17 13:25 PT/INR, D-dimer D-Dimer 481.41 ng/mlDDU (0-234) H 05/09/17 14:40 Abnormal lab findings: Abnormal Labs 05/09/17 05/09/17 05/09/17 12:52 14:40 14:40 WBC 32.8 H RBC 5.71 H Hgb 15.0 H Hct 49.5 H MCH 26 L Seg Neuts % (Manual) 83.0 H Lymphocytes % (Manual) 8.0 L Monocytes % (Manual) 8.0 H Seg Neutrophils # Man 27.2 H Monocytes # (Manual) 2.6 H D-Dimer 481.41 H POC ABG pH POC ABG pCO2 POC ABG pO2 Potassium Carbon Dioxide 4 L* BUN Glucose 315 H POC Glucose Lactic Acid Calcium Phosphorus Triglycerides Cholesterol 05/09/17 05/09/17 05/09/17 14:40 14:40 15:54 WBC RBC Hgb Hct MCH Seg Neuts % (Manual) Lymphocytes % (Manual) Monocytes % (Manual) Seg Neutrophils # Man Monocytes # (Manual) D-Dimer POC ABG pH POC ABG pCO2 POC ABG pO2 Potassium 5.2 H Carbon Dioxide 3 L* BUN Glucose 343 H POC Glucose 343 H Lactic Acid Calcium Phosphorus 6.70 H Triglycerides Cholesterol 05/09/17 05/09/17 05/09/17 16:42 17:59 18:44 WBC RBC Hgb Hct MCH Seg Neuts % (Manual) Lymphocytes % (Manual) Monocytes % (Manual) Seg Neutrophils # Man Monocytes # (Manual) D-Dimer POC ABG pH POC ABG pCO2 POC ABG pO2 Potassium Carbon Dioxide 3 L* BUN 19 H Glucose 454 H POC Glucose 334 H 393 H Lactic Acid Calcium 8.0 L Phosphorus Triglycerides Cholesterol 05/09/17 05/09/1718 18:44 18:44 19:07 WBC RBC Hgb Hct MCH Seg Neuts % (Manual) Lymphocytes % (Manual) Monocytes % (Manual) Seg Neutrophils # Man Monocytes # (Manual) D-Dimer POC ABG pH POC ABG pCO2 POC ABG pO2 Potassium Carbon Dioxide BUN Glucose POC Glucose 365 H Lactic Acid 2.10 H* Calcium Phosphorus 6.30 H Triglycerides 575 H Cholesterol 231 H 05/09/17 05/09/17 05/09/17 21:00 21:55 23:06 WBC RBC Hgb Hct MCH Seg Neuts % (Manual) Lymphocytes % (Manual) Monocytes % (Manual) Seg Neutrophils # Man Monocytes # (Manual) D-Dimer POC ABG pH POC ABG pCO2 POC ABG pO2 Potassium Carbon Dioxide 4 L* 5 L* BUN 18 H 20 H Glucose 443 H 305 H POC Glucose 322 H Lactic Acid Calcium 7.7 L 7.7 L Phosphorus Triglycerides Cholesterol 05/10/17 05/10/17 05/10/17 00:23 03:54 05:00 WBC 41.8 H* RBC 5.27 H Hgb Hct 45.0 H MCH 26 L Seg Neuts % (Manual) Lymphocytes % (Manual) Monocytes % (Manual) Seg Neutrophils # Man Monocytes # (Manual) D-Dimer POC ABG pH POC ABG pCO2 POC ABG pO2 Potassium Carbon Dioxide BUN Glucose POC Glucose 305 H 272 H Lactic Acid Calcium Phosphorus Triglycerides Cholesterol 05/10/17 05/10/17 05/10/17 05:00 06:09 07:29 WBC RBC Hgb Hct MCH Seg Neuts % (Manual) Lymphocytes % (Manual) Monocytes % (Manual) Seg Neutrophils # Man Monocytes # (Manual) D-Dimer POC ABG pH POC ABG pCO2 POC ABG pO2 Potassium 3.3 L D Carbon Dioxide 4 L* 4 L* BUN 23 H 21 H Glucose 268 H 271 H POC Glucose 275 H Lactic Acid Calcium 7.7 L 7.8 L Phosphorus Triglycerides Cholesterol 05/10/17 05/10/17 05/10/17 08:46 11:40 12:49 WBC RBC Hgb Hct MCH Seg Neuts % (Manual) Lymphocytes % (Manual) Monocytes % (Manual) Seg Neutrophils # Man Monocytes # (Manual) D-Dimer POC ABG pH POC ABG pCO2 POC ABG pO2 Potassium Carbon Dioxide BUN Glucose POC Glucose 253 H 341 H 333 H Lactic Acid Calcium Phosphorus Triglycerides Cholesterol 05/10/17 05/10/17 05/10/17 13:25 15:32 15:42 WBC RBC Hgb Hct MCH Seg Neuts % (Manual) Lymphocytes % (Manual) Monocytes % (Manual) Seg Neutrophils # Man Monocytes # (Manual) D-Dimer POC ABG pH 6.917 L POC ABG pCO2 13.1 L POC ABG pO2 118 H Potassium 3.5 L Carbon Dioxide 4 L* BUN 21 H Glucose 179 H POC Glucose 191 H Lactic Acid Calcium 7.9 L Phosphorus Triglycerides Cholesterol Assessment and Plan DKA Uncontrolled DM with hyperglycemia Severe Metabolic Acidosis SIRS secondary to DKA Hypertriglyceridemia 2 months post Admit to ICU DKA protocol, Q1H ACCUCHECKS, Insulin Drip. Replace Electrolytes Start on Bicarb Drip Give 3 Additional liters of fluids Continue Abx Check cook cultures DVT/GI prophy The high probability of a clinically significant, sudden or life threatening deterioration of the [pulmonary, Endocrine ] system(s) required my full and direct attention, intervention and personal management. The aggregate critical care time was [35] minutes. This time is in addition to time spent performing reported procedures but includes the following: [x] Data Review and interpretation [x] Patient assessment and monitoring of vital signs [x] Documentation [x] Medication orders and management
--- NOTE | 2017-05-10 20:03 | Progress Note ---
Assessment and Plan Assessment and plan: Patient is a 36 year old female who is 2 months post and with hx of type 1 DM presenting to the ER with nausea, vomiting, chest pain and abdominal pain.. Most information obtained from the patient chart and also limited from patient and due to patients clinical condition. Although the ED documentation reports that patient missed 2-3 days of insulin. The patients states she took insulin yesterday. Her chest pain and abdominal pain she states started following nausea with vomiting. she rates it a 3/10 in intensity with no radiation. She rfeports no other medical condition but unable to give me information on her labor and delivery due to her shortness of breath. DKA Uncontrolled DM with hyperglycemia Acute Respiratory failure Severe Metabolic Acidosis SIRS secondary to DKA Persistent tachycardia Hypertryglycerdemia 2 months post Plan: Continue supportive care DKA protocol, Q1H ACCUCHECKS, Insulin Drip. Replace Electrolytes Continue on Bicarb Drip- Reinforced to nursing staff to start. Critical care consult Cardiology consult Serial Labs Continue Abx Check cook cultures ct CHEST R/O PE- negative DVT/GI prophy Case discussed in detail with patient and spouse. The high probability of a clinically significant, sudden or life threatening deterioration of the [pulmonary, Endocrine ] system(s) required my full and direct attention, intervention and personal management. The aggregate critical care time was [35] minutes. This time is in addition to time spent performing reported procedures but includes the following: [x] Data Review and interpretation [x] Patient assessment and monitoring of vital signs [x] Documentation [x] Medication orders and management History Interval history: Patient seen and examined today. Remains in rapid HR and was anxious this morning, But much improved on re-examination in the afternoon. Hospitalist Physical - Physical exam Narrative exam: VITAL SIGNS: Reviewed. GENERAL: The patient appeared well nourished and normally developed. Vital signs as documented. HEAD: No signs of head trauma. EYES: Pupils are equal. Extraocular motions intact. EARS: Hearing grossly intact. MOUTH: Oropharynx is normal. NECK: No adenopathy, no JVD. CHEST: tachypnea Chest with clear breath sounds bilaterally. No wheezes, rales , or rhonchi. CARDIAC: Tachycardia rate and rhythm. S1 and S2, without murmurs, gallops, or rubs. VASCULAR: No Edema. Peripheral pulses normal and equal in all extremities. ABDOMEN: Soft, without detectable tenderness. No sign of distention. No rebound or guarding, and no masses palpated. Bowel Sounds normal. MUSCULOSKELETAL: Good range of motion of all major joints. Extremities without clubbing, cyanosis or edema. NEUROLOGIC EXAM: Alert and oriented x 3. No focal sensory or strength deficits. Speech normal. Follows commands. PSYCHIATRIC: Mood NORMAL SKIN: No rash or lesions. - Constitutional Vitals: Temp Pulse Resp BP Pulse Ox 97.4 F L 136 H 18 124/60 100 05/10/17 19:49 05/10/17 19:49 05/10/17 19:49 05/10/17 19:49 05/10/17 17:37 General appearance: Present: mild distress, other (patient is stuporous, but no acute respiratory distress) Results - Labs CBC & Chem 7: 05/10/17 05:00 05/10/17 15:42 Labs: Laboratory Last Values WBC 41.8 K/mm3 (4.5-11.0) H* 05/10/17 05:00 RBC 5.27 M/mm3 (3.65-5.03) H 05/10/17 05:00 Hgb 13.7 gm/dl (10.1-14.3) 05/10/17 05:00 Hct 45.0 % (30.3-42.9) H 05/10/17 05:00 MCV 85 fl (79-97) 05/10/17 05:00 MCH 26 pg (28-32) L 05/10/17 05:00 MCHC 30 % (30-34) 05/10/17 05:00 RDW 14.0 % (13.2-15.2) 05/10/17 05:00 Plt Count 213 K/mm3 (140-440) 05/10/17 05:00 Lymph % (Auto) Product Manager Medical Device 05/09/17 14:40 Sharp % (Auto) Product Manager Medical Device 05/09/17 14:40 Eos % (Auto) Product Manager Medical Device 05/09/17 14:40 Baso % (Auto) Product Manager Medical Device 05/09/17 14:40 Lymph # Product Manager Medical Device 05/09/17 14:40 Sharp # Product Manager Medical Device 05/09/17 14:40 Eos # Product Manager Medical Device 05/09/17 14:40 Baso # Product Manager Medical Device 05/09/17 14:40 Add Manual Diff Complete 05/09/17 14:40 Total Counted 100 05/09/17 14:40 Seg Neutrophils % Product Manager Medical Device 05/09/17 14:40 Seg Neuts % (Manual) 83.0 % (40.0-70.0) H 05/09/17 14:40 Band Neutrophils % 1.0 % 05/09/17 14:40 Lymphocytes % (Manual) 8.0 % (13.4-35.0) L 05/09/17 14:40 Reactive Lymphs % (Man) 0 % 05/09/17 14:40 Monocytes % (Manual) 8.0 % (0.0-7.3) H 05/09/17 14:40 Eosinophils % (Manual) 0 % (0.0-4.3) 05/09/17 14:40 Basophils % (Manual) 0 % (0.0-1.8) 05/09/17 14:40 Metamyelocytes % 0 % 05/09/17 14:40 Myelocytes % 0 % 05/09/17 14:40 Promyelocytes % 0 % 05/09/17 14:40 Blast Cells % 0 % 05/09/17 14:40 Nucleated RBC % Not Reportable 05/09/17 14:40 Seg Neutrophils # Product Manager Medical Device 05/09/17 14:40 Seg Neutrophils # Man 27.2 K/mm3 (1.8-7.7) H 05/09/17 14:40 Band Neutrophils # 0.3 K/mm3 05/09/17 14:40 Lymphocytes # (Manual) 2.6 K/mm3 (1.2-5.4) 05/09/17 14:40 Abs React Lymphs (Man) 0.0 K/mm3 05/09/17 14:40 Monocytes # (Manual) 2.6 K/mm3 (0.0-0.8) H 05/09/17 14:40 Eosinophils # (Manual) 0.0 K/mm3 (0.0-0.4) 05/09/17 14:40 Basophils # (Manual) 0.0 K/mm3 (0.0-0.1) 05/09/17 14:40 Metamyelocytes # 0.0 K/mm3 05/09/17 14:40 Myelocytes # 0.0 K/mm3 05/09/17 14:40 Promyelocytes # 0.0 K/mm3 05/09/17 14:40 Blast Cells # 0.0 K/mm3 05/09/17 14:40 WBC Morphology Not Reportable 05/09/17 14:40 Hypersegmented Neuts Not Reportable 05/09/17 14:40 Hyposegmented Neuts Not Reportable 05/09/17 14:40 Hypogranular Neuts Not Reportable 05/09/17 14:40 Smudge Cells Not Reportable 05/09/17 14:40 Toxic Granulation Not Reportable 05/09/17 14:40 Toxic Vacuolation Few 05/09/17 14:40 Dohle Bodies Not Reportable 05/09/17 14:40 Pelger-Huet Anomaly Not Reportable 05/09/17 14:40 Yennifer Rods Not Reportable 05/09/17 14:40 Platelet Estimate Cons 05/09/17 14:40 Clumped Platelets Not Reportable 05/09/17 14:40 Plt Clumps, EDTA Not Reportable 05/09/17 14:40 Large Platelets Not Reportable 05/09/17 14:40 Giant Platelets Rare 05/09/17 14:40 Platelet Satelliting Not Reportable 05/09/17 14:40 Plt Morphology Comment Not Reportable 05/09/17 14:40 RBC Morphology Not Reportable 05/09/17 14:40 Dimorphic RBCs Not Reportable 05/09/17 14:40 Polychromasia Not Reportable 05/09/17 14:40 Hypochromasia Not Reportable 05/09/17 14:40 Poikilocytosis Not Reportable 05/09/17 14:40 Anisocytosis Not Reportable 05/09/17 14:40 Microcytosis Not Reportable 05/09/17 14:40 Macrocytosis Not Reportable 05/09/17 14:40 Spherocytes Not Reportable 05/09/17 14:40 Pappenheimer Bodies Not Reportable 05/09/17 14:40 Sickle Cells Not Reportable 05/09/17 14:40 Target Cells Not Reportable 05/09/17 14:40 Tear Drop Cells Not Reportable 05/09/17 14:40 Ovalocytes Not Reportable 05/09/17 14:40 Helmet Cells Not Reportable 05/09/17 14:40 [place] Bodies Not Reportable 05/09/17 14:40 [place] Rings Not Reportable 05/09/17 14:40 [place] Cells Not Reportable 05/09/17 14:40 Bite Cells Not Reportable 05/09/17 14:40 Crenated Cell Not Reportable 05/09/17 14:40 Elliptocytes Not Reportable 05/09/17 14:40 Acanthocytes (Spur) Not Reportable 05/09/17 14:40 Rouleaux Not Reportable 05/09/17 14:40 Hemoglobin C Crystals Not Reportable 05/09/17 14:40 Schistocytes Not Reportable 05/09/17 14:40 Malaria parasites Not Reportable 05/09/17 14:40 Abisai Bodies Not Reportable 05/09/17 14:40 Hem Pathologist Commnt No 05/09/17 14:40 D-Dimer 481.41 ng/mlDDU (0-234) H 05/09/17 14:40 POC ABG pH 6.917 (7.35-7.45) L 05/10/17 13:25 POC ABG pCO2 13.1 (35-45) L 05/10/17 13:25 POC ABG pO2 118 (80-105) H 05/10/17 13:25 POC ABG HCO3 2.7 05/10/17 13:25 POC ABG Total CO2 < 5 05/10/17 13:25 POC ABG O2 Sat 95 05/10/17 13:25 POC ABG Base Excess -30 05/10/17 13:25 FiO2 21 % 05/10/17 13:25 Sodium 138 mmol/L (137-145) 05/10/17 15:42 Potassium 3.5 mmol/L (3.6-5.0) L 05/10/17 15:42 Chloride 101.4 mmol/L (98-107) 05/10/17 15:42 Carbon Dioxide 4 mmol/L (22-30) L* 05/10/17 15:42 Anion Gap 36 mmol/L 05/10/17 15:42 BUN 21 mg/dL (7-17) H 05/10/17 15:42 Creatinine 1.0 mg/dL (0.7-1.2) 05/10/17 15:42 Estimated GFR > 60 ml/min 05/10/17 15:42 BUN/Creatinine Ratio 21 % 05/10/17 15:42 Glucose 179 mg/dL (65-100) H 05/10/17 15:42 POC Glucose 103 (70-105) 05/10/17 19:37 Lactic Acid 1.40 mmol/L (0.7-2.0) 05/09/17 23:06 Calcium 7.9 mg/dL (8.4-10.2) L 05/10/17 15:42 Phosphorus 6.30 mg/dL (2.5-4.5) H 05/09/17 18:44 Magnesium 2.20 mg/dL (1.7-2.3) 05/09/17 18:44 Troponin T < 0.010 ng/mL (0.00-0.029) 05/09/17 18:44 Triglycerides 575 mg/dL (2-149) H 05/09/17 18:44 Cholesterol 231 mg/dL (50-199) H 05/09/17 18:44 LDL Cholesterol Direct TNR 05/09/17 18:44 HDL Cholesterol 47 mg/dL (40-59) 05/09/17 18:44 Cholesterol/HDL Ratio 4.91 % 05/09/17 18:44 HCG, Qual Negative (Negative) 05/09/17 14:40 Urine Color Yellow (Yellow) 05/09/17 Unknown Urine Turbidity Slightly-cloudy (Clear) 05/09/17 Unknown Urine pH 5.0 (5.0-7.0) 05/09/17 Unknown Ur Specific [place] 1.015 (1.003-1.030) 05/09/17 Unknown Urine Protein 100 mg/dl mg/dL (Negative) 05/09/17 Unknown Urine Glucose (UA) >=500 mg/dL (Negative) 05/09/17 Unknown Urine Ketones 80 mg/dL (Negative) 05/09/17 Unknown Urine Blood Sm (Negative) 05/09/17 Unknown Urine Nitrite Neg (Negative) 05/09/17 Unknown Urine Bilirubin Neg (Negative) 05/09/17 Unknown Urine Urobilinogen < 2.0 mg/dL (<2.0) 05/09/17 Unknown Ur Leukocyte Esterase Neg (Negative) 05/09/17 Unknown Urine WBC (Auto) 2.0 /HPF (0.0-6.0) 05/09/17 Unknown Urine RBC (Auto) 2.0 /HPF (0.0-6.0) 05/09/17 Unknown U Epithel Cells (Auto) 2.0 /HPF (0-13.0) 05/09/17 Unknown Urine Bacteria (Auto) 1+ /HPF (Negative) 05/09/17 Unknown Urine Mucus Few /HPF 05/09/17 Unknown Urine Creatinine 15.0 mg/dL (0.1-20.0) 05/09/17 Unknown Urine Microalbumin 19.3 mg/dL (0.1-34.0) 05/09/17 Unknown Microalb/Creat Ratio 1286.6 ug/mg 05/09/17 Unknown - Imaging and Cardiology CT scan - abdomen: image reviewed (NO ACUTE PATHOLOGY) CT scan - chest: image reviewed (NO ACUTE PATHOLOGY)
[2017-05-10 21:43] LABS: Hematocrit 46.2 % (30.3-42.9); Hemoglobin 14.8 gm/dl (10.1-14.3); Mean Corpuscular HGB Conc 32 % (30-34); Mean Corpuscular Volume 81 fl (79-97); Platelet Count 190 K/mm3 (140-440); Red Blood Count 5.69 M/mm3 (3.65-5.03); Red Cell Distribution Width 13.3 % (13.2-15.2)
[2017-05-10 21:55] LABS: Mean Corpuscular Hemoglobin 26 pg (28-32)
[2017-05-10 22:00] LABS: BUN/Creatinine Ratio 19; Blood Urea Nitrogen 19 mg/dL (7-17); Calcium 8.7 mg/dL (8.4-10.2); Hemolysis Index 1
[2017-05-11] MEDS: ZOSYN/NS 3.375GM/50ML 3.375 GM/50 ML BAG IV SCH ×5 (05:49→17:54)
[2017-05-11] MEDS: KCL 10MEQ/100ML 10 MEQ/100 ML BAG IV SCH ×7 (08:00→18:43)
[2017-05-11] MEDS ORDERED: SODIUM BICARBONATE IV ONE (08:12)
[2017-05-11 08:21] LABS: Hematocrit 39.8 % (30.3-42.9); Hemoglobin 12.7 gm/dl (10.1-14.3); Mean Corpuscular HGB Conc 32 % (30-34); Mean Corpuscular Volume 79 fl (79-97); Platelet Count 178 K/mm3 (140-440); Red Blood Count 5.04 M/mm3 (3.65-5.03); Red Cell Distribution Width 13.1 % (13.2-15.2)
[2017-05-11 08:42] LABS: Mean Corpuscular Hemoglobin 25 pg (28-32)
[2017-05-11 08:49] LABS: BUN/Creatinine Ratio 19; Blood Urea Nitrogen 17 mg/dL (7-17); Calcium 8.2 mg/dL (8.4-10.2); Hemolysis Index 8
[2017-05-11] MEDS ORDERED: SODIUM BICARBONATE 150 MEQ, KCL 20 MEQ in D5W 1,000 ML IV SCH (09:00)
--- NOTE | 2017-05-11 10:50 | Progress Note ---
Assessment and Plan DKA Uncontrolled Diabetes Post- Status CMOP (HFpEF) - continue IV insulin per DKA protocol - follow for AG closure with serial BMP's - better compliance counselled - other supportive care per attending Subjective Date of service: 05/11/17 Principal diagnosis: DKA Interval history: Patient is seen today for: DKA Seen and examined at bedside; 24hour events reviewed; nursing and respiratory care staff consulted; no adverse overnight events reported to me; doing a little better but still on Insulin drip; + nausea no vomiting Objective Vital Signs - 12hr 05/11/17 05/11/17 06:03 06:05 Temperature 98 F Pulse Rate 120 H Respiratory 18 18 Rate Blood Pressure 121/63 [Right] O2 Sat by Pulse 99 Oximetry Constitutional: no acute distress Eyes: non-icteric ENT: oropharynx moist, other Neck: supple, no lymphadenopathy, no JVD Effort: normal Ascultation: Bilateral: clear Percussion: Bilateral: not dull Cardiovascular: regular rate and rhythm Gastrointestinal: normoactive bowel sounds, soft, tender (mild), non-distended Integumentary: normal Extremities: no cyanosis, no edema, pink and warm, pulses normal Neurologic: normal mental status, non-focal exam, pupils equal and round, motor strength normal and Psychiatric: mood appropriate, affect normal CBC and BMP: 05/13/17 06:00 05/13/17 06:00 ABG, PT/INR, D-dimer: ABG POC ABG pH 6.917 (7.35-7.45) L 05/10/17 13:25 POC ABG pCO2 13.1 (35-45) L 05/10/17 13:25 POC ABG pO2 118 (80-105) H 05/10/17 13:25 POC ABG HCO3 2.7 05/10/17 13:25 POC ABG Total CO2 < 5 05/10/17 13:25 POC ABG O2 Sat 95 05/10/17 13:25 PT/INR, D-dimer D-Dimer 481.41 ng/mlDDU (0-234) H 05/09/17 14:40 Abnormal lab findings: Abnormal Labs 05/09/17 05/09/17 05/09/17 12:52 14:40 14:40 WBC 32.8 H RBC 5.71 H Hgb 15.0 H Hct 49.5 H MCH 26 L RDW Seg Neuts % (Manual) 83.0 H Lymphocytes % (Manual) 8.0 L Monocytes % (Manual) 8.0 H Seg Neutrophils # Man 27.2 H Monocytes # (Manual) 2.6 H D-Dimer 481.41 H POC ABG pH POC ABG pCO2 POC ABG pO2 Potassium Carbon Dioxide 4 L* BUN Glucose 315 H POC Glucose Lactic Acid Calcium Phosphorus Triglycerides Cholesterol 05/09/17 05/09/17 05/09/17 14:40 14:40 15:54 WBC RBC Hgb Hct MCH RDW Seg Neuts % (Manual) Lymphocytes % (Manual) Monocytes % (Manual) Seg Neutrophils # Man Monocytes # (Manual) D-Dimer POC ABG pH POC ABG pCO2 POC ABG pO2 Potassium 5.2 H Carbon Dioxide 3 L* BUN Glucose 343 H POC Glucose 343 H Lactic Acid Calcium Phosphorus 6.70 H Triglycerides Cholesterol 05/09/17 05/09/17 05/09/17 16:42 17:59 18:44 WBC RBC Hgb Hct MCH RDW Seg Neuts % (Manual) Lymphocytes % (Manual) Monocytes % (Manual) Seg Neutrophils # Man Monocytes # (Manual) D-Dimer POC ABG pH POC ABG pCO2 POC ABG pO2 Potassium Carbon Dioxide 3 L* BUN 19 H Glucose 454 H POC Glucose 334 H 393 H Lactic Acid Calcium 8.0 L Phosphorus Triglycerides Cholesterol 05/09/17 05/09/17 05/09/17 18:44 18:44 19:07 WBC RBC Hgb Hct MCH RDW Seg Neuts % (Manual) Lymphocytes % (Manual) Monocytes % (Manual) Seg Neutrophils # Man Monocytes # (Manual) D-Dimer POC ABG pH POC ABG pCO2 POC ABG pO2 Potassium Carbon Dioxide BUN Glucose POC Glucose 365 H Lactic Acid 2.10 H* Calcium Phosphorus 6.30 H Triglycerides 575 H Cholesterol 231 H 05/09/17 05/09/17 05/09/17 21:00 21:55 23:06 WBC RBC Hgb Hct MCH RDW Seg Neuts % (Manual) Lymphocytes % (Manual) Monocytes % (Manual) Seg Neutrophils # Man Monocytes # (Manual) D-Dimer POC ABG pH POC ABG pCO2 POC ABG pO2 Potassium Carbon Dioxide 4 L* 5 L* BUN 18 H 20 H Glucose 443 H 305 H POC Glucose 322 H Lactic Acid Calcium 7.7 L 7.7 L Phosphorus Triglycerides Cholesterol 05/10/17 05/10/17 05/10/17 00:23 03:54 05:00 WBC 41.8 H* RBC 5.27 H Hgb Hct 45.0 H MCH 26 L RDW Seg Neuts % (Manual) Lymphocytes % (Manual) Monocytes % (Manual) Seg Neutrophils # Man Monocytes # (Manual) D-Dimer POC ABG pH POC ABG pCO2 POC ABG pO2 Potassium Carbon Dioxide BUN Glucose POC Glucose 305 H 272 H Lactic Acid Calcium Phosphorus Triglycerides Cholesterol 05/10/17 05/10/17 05/10/17 05:00 06:09 07:29 WBC RBC Hgb Hct MCH RDW Seg Neuts % (Manual) Lymphocytes % (Manual) Monocytes % (Manual) Seg Neutrophils # Man Monocytes # (Manual) D-Dimer POC ABG pH POC ABG pCO2 POC ABG pO2 Potassium 3.3 L D Carbon Dioxide 4 L* 4 L* BUN 23 H 21 H Glucose 268 H 271 H POC Glucose 275 H Lactic Acid Calcium 7.7 L 7.8 L Phosphorus Triglycerides Cholesterol 05/10/17 05/10/17 05/10/17 08:46 11:40 12:49 WBC RBC Hgb Hct MCH RDW Seg Neuts % (Manual) Lymphocytes % (Manual) Monocytes % (Manual) Seg Neutrophils # Man Monocytes # (Manual) D-Dimer POC ABG pH POC ABG pCO2 POC ABG pO2 Potassium Carbon Dioxide BUN Glucose POC Glucose 253 H 341 H 333 H Lactic Acid Calcium Phosphorus Triglycerides Cholesterol 05/10/17 05/10/17 05/10/17 13:25 15:32 15:42 WBC RBC Hgb Hct MCH RDW Seg Neuts % (Manual) Lymphocytes % (Manual) Monocytes % (Manual) Seg Neutrophils # Man Monocytes # (Manual) D-Dimer POC ABG pH 6.917 L POC ABG pCO2 13.1 L POC ABG pO2 118 H Potassium 3.5 L Carbon Dioxide 4 L* BUN 21 H Glucose 179 H POC Glucose 191 H Lactic Acid Calcium 7.9 L Phosphorus Triglycerides Cholesterol 05/10/17 05/10/17 05/10/17 17:16 20:12 20:12 WBC 34.1 H RBC 5.69 H Hgb 14.8 H Hct 46.2 H MCH 26 L RDW Seg Neuts % (Manual) Lymphocytes % (Manual) Monocytes % (Manual) Seg Neutrophils # Man Monocytes # (Manual) D-Dimer POC ABG pH POC ABG pCO2 POC ABG pO2 Potassium 2.9 L* Carbon Dioxide 8 L* BUN 19 H Glucose POC Glucose 120 H Lactic Acid Calcium Phosphorus Triglycerides Cholesterol 05/10/17 05/10/17 05/11/17 21:38 22:56 00:48 WBC RBC Hgb Hct MCH RDW Seg Neuts % (Manual) Lymphocytes % (Manual) Monocytes % (Manual) Seg Neutrophils # Man Monocytes # (Manual) D-Dimer POC ABG pH POC ABG pCO2 POC ABG pO2 Potassium Carbon Dioxide BUN Glucose POC Glucose 171 H 201 H 223 H Lactic Acid Calcium Phosphorus Triglycerides Cholesterol 05/11/17 05/11/17 05/11/17 02:35 06:22 07:37 WBC RBC Hgb Hct MCH RDW Seg Neuts % (Manual) Lymphocytes % (Manual) Monocytes % (Manual) Seg Neutrophils # Man Monocytes # (Manual) D-Dimer POC ABG pH POC ABG pCO2 POC ABG pO2 Potassium Carbon Dioxide BUN Glucose POC Glucose 177 H 126 H 203 H Lactic Acid Calcium Phosphorus Triglycerides Cholesterol 05/11/17 05/11/17 08:04 08:04 WBC 20.9 H RBC 5.04 H Hgb Hct MCH 25 L RDW 13.1 L Seg Neuts % (Manual) Lymphocytes % (Manual) Monocytes % (Manual) Seg Neutrophils # Man Monocytes # (Manual) D-Dimer POC ABG pH POC ABG pCO2 POC ABG pO2 Potassium 2.3 L* D Carbon Dioxide 10 L BUN Glucose 213 H POC Glucose Lactic Acid Calcium 8.2 L Phosphorus Triglycerides Cholesterol Chest x-ray: image reviewed (normal)
[2017-05-11] MEDS ORDERED: MAGNESIUM SULFATE IV ONE (12:29)
[2017-05-11] MEDS: NovoLIN R 100 UNITS in NACL 0.9% 99 ML IV SCH (13:25)
[2017-05-11] MEDS ORDERED: K-DUR PO ONE ×2 (13:28→17:07)
[2017-05-11] MEDS: VANCOMYCIN/NS 1 GM/250 ML 1 GM/250 ML BAG IV SCH (13:43)
[2017-05-11] MEDS ORDERED: MAGNESIUM SULFATE 2GM/50ML 2 GM/50 ML BAG IV ONE ×2 (14:00→18:32)
[2017-05-11 14:20] LABS: BUN/Creatinine Ratio 18; Blood Urea Nitrogen 16 mg/dL (7-17); Calcium 8.7 mg/dL (8.4-10.2); Hemolysis Index 29
[2017-05-11] MEDS: HEPARIN SUB-Q SCH ×2 (15:27→17:36)
--- NOTE | 2017-05-11 16:48 | XRay Report ---
FINAL REPORT EXAM: XR CHEST 1V AP HISTORY: L arm PICC placement TECHNIQUE: Frontal portable examination of the chest PRIORS: Chest CT 05/09/2017 FINDINGS: There is no visible pulmonary consolidation, pleural effusion, or pneumothorax. Cardiac silhouette size is normal without vascular congestion. No visible acute displaced fracture in the regional skeleton. IMPRESSION: No acute cardiopulmonary disease in the visualized chest A new left venous catheter is in place with distal tip near the cavoatrial junction region.
--- NOTE | 2017-05-11 19:32 | Progress Note ---
Assessment and Plan Assessment and plan: Patient is a 36 year old female who is 2 months post and with hx of type 1 DM presenting to the ER with nausea, vomiting, chest pain and abdominal pain.. Most information obtained from the patient chart and also limited from patient and due to patients clinical condition. Although the ED documentation reports that patient missed 2-3 days of insulin. The patients states she took insulin yesterday. Her chest pain and abdominal pain she states started following nausea with vomiting. she rates it a 3/10 in intensity with no radiation. She rfeports no other medical condition but unable to give me information on her labor and delivery due to her shortness of breath. DKA Uncontrolled DM with hyperglycemia Acute Respiratory failure Severe Metabolic Acidosis SIRS secondary to DKA Persistent tachycardia Hypertryglycerdemia 2 months post Plan: Continue supportive care DKA protocol, Q1H ACCUCHECKS, Insulin Drip. Replace Electrolytes Continue on Bicarb Drip- Reinforced to nursing staff to start. Critical care consult Cardiology consult Serial Labs Continue Abx Check cook cultures ct CHEST R/O PE- negative DVT/GI prophy Case discussed in detail with patient and spouse. The high probability of a clinically significant, sudden or life threatening deterioration of the [pulmonary, Endocrine ] system(s) required my full and direct attention, intervention and personal management. The aggregate critical care time was [35] minutes. This time is in addition to time spent performing reported procedures but includes the following: [x] Data Review and interpretation [x] Patient assessment and monitoring of vital signs [x] Documentation [x] Medication orders and management with History Interval history: Patient seen and examined today. Remains in rapid HR and was anxious this morning, But much improved on re-examination in the afternoon. Hospitalist Physical - Physical exam Narrative exam: VITAL SIGNS: Reviewed. GENERAL: The patient appeared well nourished and normally developed. Vital signs as documented. HEAD: No signs of head trauma. EYES: Pupils are equal. Extraocular motions intact. EARS: Hearing grossly intact. MOUTH: Oropharynx is normal. NECK: No adenopathy, no JVD. CHEST: tachypnea Chest with clear breath sounds bilaterally. No wheezes, rales , or rhonchi. CARDIAC: Tachycardia rate and rhythm. S1 and S2, without murmurs, gallops, or rubs. VASCULAR: No Edema. Peripheral pulses normal and equal in all extremities. ABDOMEN: Soft, without detectable tenderness. No sign of distention. No rebound or guarding, and no masses palpated. Bowel Sounds normal. MUSCULOSKELETAL: Good range of motion of all major joints. Extremities without clubbing, cyanosis or edema. NEUROLOGIC EXAM: Alert and oriented x 3. No focal sensory or strength deficits. Speech normal. Follows commands. PSYCHIATRIC: Mood NORMAL SKIN: No rash or lesions. - Constitutional Vitals: Temp Pulse Resp BP Pulse Ox 97.5 F L 114 H 21 134/57 99 05/11/17 11:27 05/11/17 15:01 05/11/17 15:01 05/11/17 15:01 05/11/17 15:01 General appearance: Present: mild distress, other (patient is stuporous, but no acute respiratory distress) Results - Labs CBC & Chem 7: 05/12/17 07:12 05/12/17 19:00 Labs: Laboratory Last Values WBC 20.9 K/mm3 (4.5-11.0) H 05/11/17 08:04 RBC 5.04 M/mm3 (3.65-5.03) H 05/11/17 08:04 Hgb 12.7 gm/dl (10.1-14.3) 05/11/17 08:04 Hct 39.8 % (30.3-42.9) D 05/11/17 08:04 MCV 79 fl (79-97) 05/11/17 08:04 MCH 25 pg (28-32) L 05/11/17 08:04 MCHC 32 % (30-34) 05/11/17 08:04 RDW 13.1 % (13.2-15.2) L 05/11/17 08:04 Plt Count 178 K/mm3 (140-440) 05/11/17 08:04 Lymph % (Auto) Consultant Dietitian 05/09/17 14:40 Yates % (Auto) Consultant Dietitian 05/09/17 14:40 Eos % (Auto) Consultant Dietitian 05/09/17 14:40 Baso % (Auto) Consultant Dietitian 05/09/17 14:40 Lymph # Consultant Dietitian 05/09/17 14:40 Yates # Consultant Dietitian 05/09/17 14:40 Eos # Consultant Dietitian 05/09/17 14:40 Baso # Consultant Dietitian 05/09/17 14:40 Add Manual Diff Complete 05/09/17 14:40 Total Counted 100 05/09/17 14:40 Seg Neutrophils % Consultant Dietitian 05/09/17 14:40 Seg Neuts % (Manual) 83.0 % (40.0-70.0) H 05/09/17 14:40 Band Neutrophils % 1.0 % 05/09/17 14:40 Lymphocytes % (Manual) 8.0 % (13.4-35.0) L 05/09/17 14:40 Reactive Lymphs % (Man) 0 % 05/09/17 14:40 Monocytes % (Manual) 8.0 % (0.0-7.3) H 05/09/17 14:40 Eosinophils % (Manual) 0 % (0.0-4.3) 05/09/17 14:40 Basophils % (Manual) 0 % (0.0-1.8) 05/09/17 14:40 Metamyelocytes % 0 % 05/09/17 14:40 Myelocytes % 0 % 05/09/17 14:40 Promyelocytes % 0 % 05/09/17 14:40 Blast Cells % 0 % 05/09/17 14:40 Nucleated RBC % Not Reportable 05/09/17 14:40 Seg Neutrophils # Consultant Dietitian 05/09/17 14:40 Seg Neutrophils # Man 27.2 K/mm3 (1.8-7.7) H 05/09/17 14:40 Band Neutrophils # 0.3 K/mm3 05/09/17 14:40 Lymphocytes # (Manual) 2.6 K/mm3 (1.2-5.4) 05/09/17 14:40 Abs React Lymphs (Man) 0.0 K/mm3 05/09/17 14:40 Monocytes # (Manual) 2.6 K/mm3 (0.0-0.8) H 05/09/17 14:40 Eosinophils # (Manual) 0.0 K/mm3 (0.0-0.4) 05/09/17 14:40 Basophils # (Manual) 0.0 K/mm3 (0.0-0.1) 05/09/17 14:40 Metamyelocytes # 0.0 K/mm3 05/09/17 14:40 Myelocytes # 0.0 K/mm3 05/09/17 14:40 Promyelocytes # 0.0 K/mm3 05/09/17 14:40 Blast Cells # 0.0 K/mm3 05/09/17 14:40 WBC Morphology Not Reportable 05/09/17 14:40 Hypersegmented Neuts Not Reportable 05/09/17 14:40 Hyposegmented Neuts Not Reportable 05/09/17 14:40 Hypogranular Neuts Not Reportable 05/09/17 14:40 Smudge Cells Not Reportable 05/09/17 14:40 Toxic Granulation Not Reportable 05/09/17 14:40 Toxic Vacuolation Few 05/09/17 14:40 Dohle Bodies Not Reportable 05/09/17 14:40 Pelger-Huet Anomaly Not Reportable 05/09/17 14:40 Yennifer Rods Not Reportable 05/09/17 14:40 Platelet Estimate Cons 05/09/17 14:40 Clumped Platelets Not Reportable 05/09/17 14:40 Plt Clumps, EDTA Not Reportable 05/09/17 14:40 Large Platelets Not Reportable 05/09/17 14:40 Giant Platelets Rare 05/09/17 14:40 Platelet Satelliting Not Reportable 05/09/17 14:40 Plt Morphology Comment Not Reportable 05/09/17 14:40 RBC Morphology Not Reportable 05/09/17 14:40 Dimorphic RBCs Not Reportable 05/09/17 14:40 Polychromasia Not Reportable 05/09/17 14:40 Hypochromasia Not Reportable 05/09/17 14:40 Poikilocytosis Not Reportable 05/09/17 14:40 Anisocytosis Not Reportable 05/09/17 14:40 Microcytosis Not Reportable 05/09/17 14:40 Macrocytosis Not Reportable 05/09/17 14:40 Spherocytes Not Reportable 05/09/17 14:40 Pappenheimer Bodies Not Reportable 05/09/17 14:40 Sickle Cells Not Reportable 05/09/17 14:40 Target Cells Not Reportable 05/09/17 14:40 Tear Drop Cells Not Reportable 05/09/17 14:40 Ovalocytes Not Reportable 05/09/17 14:40 Helmet Cells Not Reportable 05/09/17 14:40 [place] Bodies Not Reportable 05/09/17 14:40 [place] Rings Not Reportable 05/09/17 14:40 [place] Cells Not Reportable 05/09/17 14:40 Bite Cells Not Reportable 05/09/17 14:40 Crenated Cell Not Reportable 05/09/17 14:40 Elliptocytes Not Reportable 05/09/17 14:40 Acanthocytes (Spur) Not Reportable 05/09/17 14:40 Rouleaux Not Reportable 05/09/17 14:40 Hemoglobin C Crystals Not Reportable 05/09/17 14:40 Schistocytes Not Reportable 05/09/17 14:40 Malaria parasites Not Reportable 05/09/17 14:40 Abisai Bodies Not Reportable 05/09/17 14:40 Hem Pathologist Commnt No 05/09/17 14:40 D-Dimer 481.41 ng/mlDDU (0-234) H 05/09/17 14:40 POC ABG pH 6.917 (7.35-7.45) L 05/10/17 13:25 POC ABG pCO2 13.1 (35-45) L 05/10/17 13:25 POC ABG pO2 118 (80-105) H 05/10/17 13:25 POC ABG HCO3 2.7 05/10/17 13:25 POC ABG Total CO2 < 5 05/10/17 13:25 POC ABG O2 Sat 95 05/10/17 13:25 POC ABG Base Excess -30 05/10/17 13:25 FiO2 21 % 05/10/17 13:25 Sodium 145 mmol/L (137-145) 05/11/17 Unknown Potassium 2.2 mmol/L (3.6-5.0) L* 05/11/17 Unknown Chloride 104.2 mmol/L (98-107) 05/11/17 Unknown Carbon Dioxide 12 mmol/L (22-30) L 05/11/17 Unknown Anion Gap 31 mmol/L 05/11/17 Unknown BUN 16 mg/dL (7-17) 05/11/17 Unknown Creatinine 0.9 mg/dL (0.7-1.2) 05/11/17 Unknown Estimated GFR > 60 ml/min 05/11/17 Unknown BUN/Creatinine Ratio 18 % 05/11/17 Unknown Glucose 133 mg/dL (65-100) H 05/11/17 Unknown POC Glucose 196 (70-105) H 05/11/17 18:38 Lactic Acid 1.40 mmol/L (0.7-2.0) 05/09/17 23:06 Calcium 8.7 mg/dL (8.4-10.2) 05/11/17 Unknown Phosphorus 6.30 mg/dL (2.5-4.5) H 05/09/17 18:44 Magnesium 1.70 mg/dL (1.7-2.3) 05/11/17 08:04 Troponin T < 0.010 ng/mL (0.00-0.029) 05/09/17 18:44 Triglycerides 575 mg/dL (2-149) H 05/09/17 18:44 Cholesterol 231 mg/dL (50-199) H 05/09/17 18:44 LDL Cholesterol Direct TNR 05/09/17 18:44 HDL Cholesterol 47 mg/dL (40-59) 05/09/17 18:44 Cholesterol/HDL Ratio 4.91 % 05/09/17 18:44 HCG, Qual Negative (Negative) 05/09/17 14:40 Urine Color Yellow (Yellow) 05/09/17 Unknown Urine Turbidity Slightly-cloudy (Clear) 05/09/17 Unknown Urine pH 5.0 (5.0-7.0) 05/09/17 Unknown Ur Specific Marcell 1.015 (1.003-1.030) 05/09/17 Unknown Urine Protein 100 mg/dl mg/dL (Negative) 05/09/17 Unknown Urine Glucose (UA) >=500 mg/dL (Negative) 05/09/17 Unknown Urine Ketones 80 mg/dL (Negative) 05/09/17 Unknown Urine Blood Sm (Negative) 05/09/17 Unknown Urine Nitrite Neg (Negative) 05/09/17 Unknown Urine Bilirubin Neg (Negative) 05/09/17 Unknown Urine Urobilinogen < 2.0 mg/dL (<2.0) 05/09/17 Unknown Ur Leukocyte Esterase Neg (Negative) 05/09/17 Unknown Urine WBC (Auto) 2.0 /HPF (0.0-6.0) 05/09/17 Unknown Urine RBC (Auto) 2.0 /HPF (0.0-6.0) 05/09/17 Unknown U Epithel Cells (Auto) 2.0 /HPF (0-13.0) 05/09/17 Unknown Urine Bacteria (Auto) 1+ /HPF (Negative) 05/09/17 Unknown Urine Mucus Few /HPF 05/09/17 Unknown Urine Creatinine 15.0 mg/dL (0.1-20.0) 05/09/17 Unknown Urine Microalbumin 19.3 mg/dL (0.1-34.0) 05/09/17 Unknown Microalb/Creat Ratio 1286.6 ug/mg 05/09/17 Unknown
[2017-05-12] MEDS: HEPARIN SUB-Q SCH ×4 (00:13→23:27)
[2017-05-12] MEDS: ZOSYN/NS 3.375GM/50ML 3.375 GM/50 ML BAG IV SCH ×4 (01:13→19:08)
[2017-05-12] MEDS: NovoLIN R 100 UNITS in NACL 0.9% 99 ML IV SCH ×2 (04:31→16:02)
[2017-05-12] MEDS ORDERED: D5/0.45NS 1,000 ML IV ONE (06:25)
[2017-05-12] MEDS: SYNTHROID PO SCH (07:00)
[2017-05-12 07:29] LABS: Hematocrit 36.4 % (30.3-42.9); Hemoglobin 12.2 gm/dl (10.1-14.3); Mean Corpuscular HGB Conc 34 % (30-34); Mean Corpuscular Hemoglobin 26 pg (28-32); Mean Corpuscular Volume 77 fl (79-97); Platelet Count 169 K/mm3 (140-440)
[2017-05-12 07:44] LABS: BUN/Creatinine Ratio 23; Blood Urea Nitrogen 14 mg/dL (7-17); Calcium 7.5 mg/dL (8.4-10.2); Hemolysis Index 0
--- NOTE | 2017-05-12 10:10 | Event Note ---
Date: 05/12/17 Doing better Transitioning off IV insulin DKA Uncontrolled Diabetes Post- Status CMOP (HFpEF) - can transfer to medical floor - please re-consult if needed
[2017-05-12] MEDS: KCL 10MEQ/100ML 10 MEQ/100 ML BAG IV SCH ×5 (10:30→19:58)
--- NOTE | 2017-05-12 11:30 | Progress Note ---
Assessment and Plan Assessment and plan: Patient is a 36 year old female who is 2 months post and with hx of type 1 DM presenting to the ER with nausea, vomiting, chest pain and abdominal pain.. Most information obtained from the patient chart and also limited from patient and due to patients clinical condition. Although the ED documentation reports that patient missed 2-3 days of insulin. The patients states she took insulin yesterday. Her chest pain and abdominal pain she states started following nausea with vomiting. she rates it a 3/10 in intensity with no radiation. She rfeports no other medical condition but unable to give me information on her labor and delivery due to her shortness of breath. DKA Uncontrolled DM with hyperglycemia Acute Respiratory failure Severe Metabolic Acidosis Resistant Hypokalemia SIRS secondary to DKA Hypernatremia Persistent tachycardia Hypertryglycerdemia 2 months post Plan: Continue supportive care DKA protocol, Q1H ACCUCHECKS, Insulin Drip. Switch to D5W With 20kcl considering Hypernatermia. Monitor sodium level Obtain Nephrology consult Will stop bicarb drip Replace Electrolytes Continue on Bicarb Drip- Reinforced to nursing staff to start. Critical care consult Cardiology consult Serial Labs Continue Abx- Descalate Check cook cultures ct CHEST R/O PE- negative DVT/GI prophy Case discussed in detail with patient and spouse. Many down grade once gap closed. The high probability of a clinically significant, sudden or life threatening deterioration of the [pulmonary, Endocrine ] system(s) required my full and direct attention, intervention and personal management. The aggregate critical care time was [35] minutes. This time is in addition to time spent performing reported procedures but includes the following: [x] Data Review and interpretation [x] Patient assessment and monitoring of vital signs [x] Documentation [x] Medication orders and management History Interval history: Patient seen and examined today. Doing very well, in no acute distress. much more resting. Hospitalist Physical - Physical exam Narrative exam: VITAL SIGNS: Reviewed. GENERAL: The patient appeared well nourished and normally developed. Vital signs as documented. HEAD: No signs of head trauma. EYES: Pupils are equal. Extraocular motions intact. EARS: Hearing grossly intact. MOUTH: Oropharynx is normal. NECK: No adenopathy, no JVD. CHEST: tachypnea Chest with clear breath sounds bilaterally. No wheezes, rales , or rhonchi. CARDIAC: Regular rate and rhythm. S1 and S2, without murmurs, gallops, or rubs. VASCULAR: No Edema. Peripheral pulses normal and equal in all extremities. ABDOMEN: Soft, without detectable tenderness. No sign of distention. No rebound or guarding, and no masses palpated. Bowel Sounds normal. MUSCULOSKELETAL: Good range of motion of all major joints. Extremities without clubbing, cyanosis or edema. NEUROLOGIC EXAM: Alert and oriented x 3. No focal sensory or strength deficits. Speech normal. Follows commands. PSYCHIATRIC: Mood NORMAL SKIN: No rash or lesions. - Constitutional Vitals: Temp Pulse Resp BP Pulse Ox 97.5 F L 95 H 20 113/81 97 05/11/17 11:27 05/12/17 03:01 05/12/17 03:01 05/12/17 03:01 05/12/17 03:01 General appearance: Present: mild distress, other (patient is stuporous, but no acute respiratory distress) Results - Labs CBC & Chem 7: 05/12/17 07:12 05/12/17 19:00 Labs: Laboratory Last Values WBC 9.5 K/mm3 (4.5-11.0) 05/12/17 07:12 RBC 4.70 M/mm3 (3.65-5.03) 05/12/17 07:12 Hgb 12.2 gm/dl (10.1-14.3) 05/12/17 07:12 Hct 36.4 % (30.3-42.9) 05/12/17 07:12 MCV 77 fl (79-97) L 05/12/17 07:12 MCH 26 pg (28-32) L 05/12/17 07:12 MCHC 34 % (30-34) 05/12/17 07:12 RDW 13.0 % (13.2-15.2) L 05/12/17 07:12 Plt Count 169 K/mm3 (140-440) 05/12/17 07:12 Lymph % (Auto) Physical Sciences Instructor 05/09/17 14:40 [place] % (Auto) Physical Sciences Instructor 05/09/17 14:40 Eos % (Auto) Physical Sciences Instructor 05/09/17 14:40 Baso % (Auto) Physical Sciences Instructor 05/09/17 14:40 Lymph # Physical Sciences Instructor 05/09/17 14:40 Canyon # Physical Sciences Instructor 05/09/17 14:40 Eos # Physical Sciences Instructor 05/09/17 14:40 Baso # Physical Sciences Instructor 05/09/17 14:40 Add Manual Diff Complete 05/09/17 14:40 Total Counted 100 05/09/17 14:40 Seg Neutrophils % Physical Sciences Instructor 05/09/17 14:40 Seg Neuts % (Manual) 83.0 % (40.0-70.0) H 05/09/17 14:40 Band Neutrophils % 1.0 % 05/09/17 14:40 Lymphocytes % (Manual) 8.0 % (13.4-35.0) L 05/09/17 14:40 Reactive Lymphs % (Man) 0 % 05/09/17 14:40 Monocytes % (Manual) 8.0 % (0.0-7.3) H 05/09/17 14:40 Eosinophils % (Manual) 0 % (0.0-4.3) 05/09/17 14:40 Basophils % (Manual) 0 % (0.0-1.8) 05/09/17 14:40 Metamyelocytes % 0 % 05/09/17 14:40 Myelocytes % 0 % 05/09/17 14:40 Promyelocytes % 0 % 05/09/17 14:40 Blast Cells % 0 % 05/09/17 14:40 Nucleated RBC % Not Reportable 05/09/17 14:40 Seg Neutrophils # Physical Sciences Instructor 05/09/17 14:40 Seg Neutrophils # Man 27.2 K/mm3 (1.8-7.7) H 05/09/17 14:40 Band Neutrophils # 0.3 K/mm3 05/09/17 14:40 Lymphocytes # (Manual) 2.6 K/mm3 (1.2-5.4) 05/09/17 14:40 Abs React Lymphs (Man) 0.0 K/mm3 05/09/17 14:40 Monocytes # (Manual) 2.6 K/mm3 (0.0-0.8) H 05/09/17 14:40 Eosinophils # (Manual) 0.0 K/mm3 (0.0-0.4) 05/09/17 14:40 Basophils # (Manual) 0.0 K/mm3 (0.0-0.1) 05/09/17 14:40 Metamyelocytes # 0.0 K/mm3 05/09/17 14:40 Myelocytes # 0.0 K/mm3 05/09/17 14:40 Promyelocytes # 0.0 K/mm3 05/09/17 14:40 Blast Cells # 0.0 K/mm3 05/09/17 14:40 WBC Morphology Not Reportable 05/09/17 14:40 Hypersegmented Neuts Not Reportable 05/09/17 14:40 Hyposegmented Neuts Not Reportable 05/09/17 14:40 Hypogranular Neuts Not Reportable 05/09/17 14:40 Smudge Cells Not Reportable 05/09/17 14:40 Toxic Granulation Not Reportable 05/09/17 14:40 Toxic Vacuolation Few 05/09/17 14:40 Dohle Bodies Not Reportable 05/09/17 14:40 Pelger-Huet Anomaly Not Reportable 05/09/17 14:40 Yennifer Rods Not Reportable 05/09/17 14:40 Platelet Estimate Cons 05/09/17 14:40 Clumped Platelets Not Reportable 05/09/17 14:40 Plt Clumps, EDTA Not Reportable 05/09/17 14:40 Large Platelets Not Reportable 05/09/17 14:40 Giant Platelets Rare 05/09/17 14:40 Platelet Satelliting Not Reportable 05/09/17 14:40 Plt Morphology Comment Not Reportable 05/09/17 14:40 RBC Morphology Not Reportable 05/09/17 14:40 Dimorphic RBCs Not Reportable 05/09/17 14:40 Polychromasia Not Reportable 05/09/17 14:40 Hypochromasia Not Reportable 05/09/17 14:40 Poikilocytosis Not Reportable 05/09/17 14:40 Anisocytosis Not Reportable 05/09/17 14:40 Microcytosis Not Reportable 05/09/17 14:40 Macrocytosis Not Reportable 05/09/17 14:40 Spherocytes Not Reportable 05/09/17 14:40 Pappenheimer Bodies Not Reportable 05/09/17 14:40 Sickle Cells Not Reportable 05/09/17 14:40 Target Cells Not Reportable 05/09/17 14:40 Tear Drop Cells Not Reportable 05/09/17 14:40 Ovalocytes Not Reportable 05/09/17 14:40 Helmet Cells Not Reportable 05/09/17 14:40 Witt-Pittman Bodies Not Reportable 05/09/17 14:40 Seibert Rings Not Reportable 05/09/17 14:40 Ulysses Cells Not Reportable 05/09/17 14:40 Bite Cells Not Reportable 05/09/17 14:40 Crenated Cell Not Reportable 05/09/17 14:40 Elliptocytes Not Reportable 05/09/17 14:40 Acanthocytes (Spur) Not Reportable 05/09/17 14:40 Rouleaux Not Reportable 05/09/17 14:40 Hemoglobin C Crystals Not Reportable 05/09/17 14:40 Schistocytes Not Reportable 05/09/17 14:40 Malaria parasites Not Reportable 05/09/17 14:40 Abisai Bodies Not Reportable 05/09/17 14:40 Hem Pathologist Commnt No 05/09/17 14:40 D-Dimer 481.41 ng/mlDDU (0-234) H 05/09/17 14:40 POC ABG pH 6.917 (7.35-7.45) L 05/10/17 13:25 POC ABG pCO2 13.1 (35-45) L 05/10/17 13:25 POC ABG pO2 118 (80-105) H 05/10/17 13:25 POC ABG HCO3 2.7 05/10/17 13:25 POC ABG Total CO2 < 5 05/10/17 13:25 POC ABG O2 Sat 95 05/10/17 13:25 POC ABG Base Excess -30 05/10/17 13:25 FiO2 21 % 05/10/17 13:25 Sodium 155 mmol/L (137-145) H D 05/12/17 07:12 Potassium 2.2 mmol/L (3.6-5.0) L* 05/12/17 07:12 Chloride 103.5 mmol/L (98-107) 05/12/17 07:12 Carbon Dioxide 22 mmol/L (22-30) D 05/12/17 07:12 Anion Gap 32 mmol/L 05/12/17 07:12 BUN 14 mg/dL (7-17) 05/12/17 07:12 Creatinine 0.6 mg/dL (0.7-1.2) L 05/12/17 07:12 Estimated GFR > 60 ml/min 05/12/17 07:12 BUN/Creatinine Ratio 23 % 05/12/17 07:12 Glucose 92 mg/dL (65-100) 05/12/17 07:12 POC Glucose 308 (70-105) H 05/12/17 10:51 Lactic Acid 1.40 mmol/L (0.7-2.0) 05/09/17 23:06 Calcium 7.5 mg/dL (8.4-10.2) L 05/12/17 07:12 Phosphorus 6.30 mg/dL (2.5-4.5) H 05/09/17 18:44 Magnesium 2.00 mg/dL (1.7-2.3) 05/12/17 07:12 Troponin T < 0.010 ng/mL (0.00-0.029) 05/09/17 18:44 Triglycerides 575 mg/dL (2-149) H 05/09/17 18:44 Cholesterol 231 mg/dL (50-199) H 05/09/17 18:44 LDL Cholesterol Direct TNR 05/09/17 18:44 HDL Cholesterol 47 mg/dL (40-59) 05/09/17 18:44 Cholesterol/HDL Ratio 4.91 % 05/09/17 18:44 HCG, Qual Negative (Negative) 05/09/17 14:40 Urine Color Yellow (Yellow) 05/09/17 Unknown Urine Turbidity Slightly-cloudy (Clear) 05/09/17 Unknown Urine pH 5.0 (5.0-7.0) 05/09/17 Unknown Ur Specific Pandora 1.015 (1.003-1.030) 05/09/17 Unknown Urine Protein 100 mg/dl mg/dL (Negative) 05/09/17 Unknown Urine Glucose (UA) >=500 mg/dL (Negative) 05/09/17 Unknown Urine Ketones 80 mg/dL (Negative) 05/09/17 Unknown Urine Blood Sm (Negative) 05/09/17 Unknown Urine Nitrite Neg (Negative) 05/09/17 Unknown Urine Bilirubin Neg (Negative) 05/09/17 Unknown Urine Urobilinogen < 2.0 mg/dL (<2.0) 05/09/17 Unknown Ur Leukocyte Esterase Neg (Negative) 05/09/17 Unknown Urine WBC (Auto) 2.0 /HPF (0.0-6.0) 05/09/17 Unknown Urine RBC (Auto) 2.0 /HPF (0.0-6.0) 05/09/17 Unknown U Epithel Cells (Auto) 2.0 /HPF (0-13.0) 05/09/17 Unknown Urine Bacteria (Auto) 1+ /HPF (Negative) 05/09/17 Unknown Urine Mucus Few /HPF 05/09/17 Unknown Urine Creatinine 15.0 mg/dL (0.1-20.0) 05/09/17 Unknown Urine Microalbumin 19.3 mg/dL (0.1-34.0) 05/09/17 Unknown Microalb/Creat Ratio 1286.6 ug/mg 05/09/17 Unknown
[2017-05-12] MEDS ORDERED: PNEUMOVAX 23 IM ONE (12:00)
[2017-05-12] MEDS ORDERED: Fluarix Quad 2017-2018(36 MOS+ IM ONE (12:00)
--- NOTE | 2017-05-12 15:01 | Consultation ---
History of Present Illness - Reason for Consult Consult date: 05/12/17 hypernatremia, hypokalemia, metabolic acidosis - History of Present Illness Mrs. Moy is a 36yo with Type I DM who presented to the ED with a one day history of intractable nausea/vomiting. She was traveling from [place] to [place]. When flight arrived in [place], paramedics were called and she was transported to the ED. Labs at admission were notable for glucose 343, bicarb 3, anion gap 44, K 5.2 She denies sick contact, fever, chills, diarrhea. She reports abdominal pain at onset of symptoms but this has resolved. Her primary complaint at present is dizziness with ambulation. Nephrology consultation has been requested by hospitalist. Past History Past Medical History: diabetes Past Surgical History: No surgical history Social history: . denies: smoking, alcohol abuse, prescription drug abuse Family history: diabetes Medications and Allergies Allergies Allergy/AdvReac Type Severity Reaction Status Date / Time No Known Allergies Allergy Unverified 05/09/17 12:51 Home Medications Medication Instructions Recorded Confirmed Last Taken Type No Known Home Medications [No 05/09/17 05/09/17 Unknown History Reported Home Medications] Active Meds: Active Medications Al Hydrox/Mg Hydrox/Simethicone (Alum-Mag Hydrox-Simeth 764-717-28dx/5ml) 30 ml PO Q4H PRN PRN Reason: Indigestion Bisacodyl (Dulcolax) 10 mg GA QDAY PRN PRN Reason: constipation unrelieved by MOM Dextrose (D50w (25gm) Syringe) 0 ml IV PRN PRN PRN Reason: Hypoglycemia Heparin Sodium (Porcine) (Heparin) 5,000 unit SUB-Q Q8HR MAYTE Last Admin: 05/12/17 11:54 Dose: 5,000 unit Piperacillin Sod/Tazobactam Sod (Zosyn/Ns 3.375gm/50ml) 3.375 gm in 50 mls @ 100 mls/hr IV Q6HR MAYTE Last Admin: 05/12/17 12:37 Dose: 100 mls/hr Insulin Human Regular 100 (units/ Sodium Chloride) 100 mls @ 1 mls/hr IV TITR MAYTE; 1 UNITS/HR PRN Reason: Protocol Last Titration: 05/12/17 14:00 Dose: 12 units/hr, 12 mls/hr Potassium Chloride 20 meq/ (Dextrose) 1,010 mls @ 125 mls/hr IV DIRECT [facility] Levothyroxine Sodium (Synthroid) 50 mcg PO DAILY@0600 [facility] Last Admin: 05/12/17 07:00 Dose: 50 mcg Magnesium Hydroxide (Milk Of Magnesia) 30 ml PO Q4H PRN PRN Reason: Constipation Review of Systems All systems: negative Constitutional: no fever, no chills Cardiovascular: no palpitations Respiratory: no cough Gastrointestinal: nausea, no abdominal pain (resolved), no vomiting (resolved), no diarrhea Musculoskeletal: no muscle cramps Neurological: other (dizziness) Exam - Vital Signs Vital signs: Vital Signs Pulse Resp BP Pulse Ox 138 H 24 136/69 100 05/09/17 13:06 05/09/17 13:06 05/09/17 13:06 05/09/17 13:06 - General Appearance General appearance: well-developed, well-nourished EENT: ATNC Respiratory: Clear to Ascultation Heart: regular, S1S2 Gastrointestinal: Present: normal. Absent: tenderness, distended Integumentary: no rash, warm and dry Neurologic: alert and oriented x3 Musculoskeletal: Present: other (no edema) Psychiatric: cooperative Results - Lab Results 05/12/17 07:12 05/12/17 15:45 Most recent lab results Calcium 7.5 mg/dL (8.4-10.2) L 05/12/17 07:12 Phosphorus 6.30 mg/dL (2.5-4.5) H 05/09/17 18:44 Magnesium 2.00 mg/dL (1.7-2.3) 05/12/17 07:12 Urine Creatinine 15.0 mg/dL (0.1-20.0) 05/09/17 Unknown Assessment and Plan Impression: * DKA * Metabolic acidosis secondary to DKA * Hypernatremia * Hypokalemia Plan: * Continue hypotonic IVF w/ 20meq KCl * Replete lytes prn * Serial labs ordered * Glycemic control per primary team * Strict I/O
[2017-05-12 17:17] LABS: BUN/Creatinine Ratio 22; Blood Urea Nitrogen 13 mg/dL (7-17); Calcium 8.5 mg/dL (8.4-10.2); Hemolysis Index 16
[2017-05-12] MEDS ORDERED: SODIUM BICARBONATE IV ONE ×2 (19:37→20:00)
[2017-05-12] MEDS ORDERED: D50W (25GM) Syringe IV PRN (19:38)
[2017-05-12 19:43] LABS: BUN/Creatinine Ratio 20; Blood Urea Nitrogen 12 mg/dL (7-17); Calcium 8.5 mg/dL (8.4-10.2); Hemolysis Index 4
[2017-05-12] MEDS: KCL 20 MEQ in D5W 1,000 ML IV SCH (19:58)
[2017-05-12] MEDS ORDERED: LEVEMIR SUB-Q SCH ×2 (22:00)
[2017-05-13] MEDS: ZOSYN/NS 3.375GM/50ML 3.375 GM/50 ML BAG IV SCH ×2 (01:09→07:11)
[2017-05-13] MEDS: KCL 10MEQ/100ML 10 MEQ/100 ML BAG IV SCH ×5 (01:25→08:56)
[2017-05-13 06:44] LABS: Hematocrit 37.6 % (30.3-42.9); Hemoglobin 12.5 gm/dl (10.1-14.3); Mean Corpuscular HGB Conc 33 % (30-34); Mean Corpuscular Volume 78 fl (79-97); Platelet Count 167 K/mm3 (140-440); Red Blood Count 4.85 M/mm3 (3.65-5.03); Red Cell Distribution Width 12.9 % (13.2-15.2)
[2017-05-13 06:58] LABS: BUN/Creatinine Ratio 18; Blood Urea Nitrogen 11 mg/dL (7-17); Calcium 8.4 mg/dL (8.4-10.2); Hemolysis Index 4
[2017-05-13 07:10] LABS: Mean Corpuscular Hemoglobin 26 pg (28-32)
[2017-05-13] MEDS: SYNTHROID PO SCH (07:10)
[2017-05-13] MEDS: HEPARIN SUB-Q SCH (07:12)
[2017-05-13 07:56] VITALS: BP 103/55
--- NOTE | 2017-05-13 08:05 | Discharge Summary ---
Providers - Providers Date of Admission: 05/09/17 15:36 Attending physician: CRISTAL SOOD MD 05/09/17 15:34 Consult to Dietitian/Nutrition [CONS] Routine Physician Instructions: Reason For Exam: DKA Reason for Consult: Nutrition Recommendations Reason for Consult: Diet education 05/09/17 15:37 Consult to Physician [CONS] Routine Consulting Provider: RANGEL PARDO Reason For Exam: DKA Place consult to:: CC TAX COMPLIANCE OFFICER Notified:: Y Was contact made?: Yes If yes, spoke with:: DOUGLAS RODRIGUE Time called:: 16:25 05/10/17 07:27 Consult to Physician [CONS] Routine Consulting Provider: KELLY GRAHAM Reason For Exam: persistent tachycardia Place consult to:: CARDIO Notified:: Y If yes, spoke with:: ARPITA Time called:: 08:30 05/11/17 11:51 Consult to Case Management [CONS] Stat Services Needed at Discharge: Taping Supervisor Notified:: Consult placed Was contact made?: No Additional Physician Instructions: Patient is admitted to ICU. Traveler [facility] to [place]. Taken off plane in [place], ill Diabetic Ketoacidosis. and have been staying with the patient in the ED. Here now for 48 hours +. Need help with getting place for the father and child. Consult to PICC Line RN [CONS] Stat Reason For Exam: Access needed for multiple infusions Type Line:: PICC 05/12/17 08:34 Consult to Physician [CONS] Stat Consulting Provider: CRISTAL SOOD Reason For Exam: DKA Place consult to:: Dr Diaz Notified:: no Primary care physician: [employer] Hospitalization Reason for admission: DKA Condition: Stable Hospital course: Patient is a 36 year old female who is 2 months post and with hx of type 1 DM presenting to the ER with nausea, vomiting, chest pain and abdominal pain. She was traveling from [place] to [place]. When flight arrived in [place], paramedics were called and she was transported to the ED. Most information obtained from the patient chart and also limited from patient and due to patients clinical condition. Although the ED documentation reports that patient missed 2-3 days of insulin. The patients states she took insulin yesterday. Her chest pain and abdominal pain she states started following nausea with vomiting. she rates it a 3/10 in intensity with no radiation. She rfeports no other medical condition but unable to give me information on her labor and delivery due to her shortness of breath. Patient was aggressively treated for DKA protocol required replacement of electrolytes and also bicarbonate drip. Nephrology was consulted to assist with hyponatremia which has all since resolved. She was treated with empiric antibiotic coverage but no source of infection was identified. She is clinically stable to be discharged and advised her on medication use she appears to be compliant for probably needed an adjustment dose medications. She is clinically stable for discharge to return home to [place]. DKA Uncontrolled DM with hyperglycemia Acute Respiratory failure Severe Metabolic Acidosis Resistant Hypokalemia SIRS secondary to DKA Hypernatremia Persistent tachycardia Hypertryglycerdemia 2 months post Disposition: [place] TO HOME OR SELFCARE Time spent for discharge: 35 mins Core Measure Documentation - Palliative Care Palliative Care/ Comfort Measures: Not Applicable - Core Measures Any of the following diagnoses?: none - VTE Discharge Requirements Deep Vein Thrombosis/Pulmonary Embolism Present on Admission: No Exam - Physical Exam Narrative exam: VITAL SIGNS: Reviewed. GENERAL: The patient appeared well nourished and normally developed. Vital signs as documented. HEAD: No signs of head trauma. EYES: Pupils are equal. Extraocular motions intact. EARS: Hearing grossly intact. MOUTH: Oropharynx is normal. NECK: No adenopathy, no JVD. CHEST: tachypnea Chest with clear breath sounds bilaterally. No wheezes, rales , or rhonchi. CARDIAC: Regular rate and rhythm. S1 and S2, without murmurs, gallops, or rubs. VASCULAR: No Edema. Peripheral pulses normal and equal in all extremities. ABDOMEN: Soft, without detectable tenderness. No sign of distention. No rebound or guarding, and no masses palpated. Bowel Sounds normal. MUSCULOSKELETAL: Good range of motion of all major joints. Extremities without clubbing, cyanosis or edema. NEUROLOGIC EXAM: Alert and oriented x 3. No focal sensory or strength deficits. Speech normal. Follows commands. PSYCHIATRIC: Mood NORMAL SKIN: No rash or lesions. - Constitutional Vitals: Temp Pulse Resp BP Pulse Ox 97.7 F 82 15 103/55 99 05/13/17 07:53 05/13/17 07:53 05/13/17 07:53 05/13/17 07:53 05/13/17 07:53 Plan Activity: advance as tolerated, fall precautions Diet: diabetic Special Instructions: record blood sugar diary Follow up with: PRIMARY CARE, [Primary Care Provider] - 3-5 Days Prescriptions: Insulin Glargine,Hum.rec.anlog [Lantus] 25 units SQ QHS #1 vial Insulin Lispro [Humalog 100 UNITS/ML Kwikpen] 0 units SQ AC #30 insuln.pen
[2017-05-13] MEDS ORDERED: K-DUR PO ONE (08:30)
[2017-05-13] MEDS: KCL 20 MEQ in D5W 1,000 ML IV SCH (08:47)
[2017-05-13] MEDS ORDERED: TRIPLE ANTIBIOTIC TP NR (13:00)
[2017-05-13] MEDS: TRIPLE ANTIBIOTIC TP ONE ×2 (13:23→13:44)
== END 2017-05-13 13:45 | disposition home or self-care (01) | DRG 637 ==
LOC: ED 12:38 → CC1 15:36 → 3A 05-12 19:55
PROVIDERS: ADMIT Internal Medicine; ATTEND Internal Medicine
PROC: 4A033R1 Measurement of Arterial Saturation, Peripheral, Percutaneous Approach (ICD-10-PCS; 2017-05-10)
PROC: 02HV33Z Insertion of Infusion Device into Superior Vena Cava, Percutaneous Approach (ICD-10-PCS; principal; 2017-05-11)
PROC: 3E0234Z Introduction of Serum, Toxoid and Vaccine into Muscle, Percutaneous Approach (ICD-10-PCS; 2017-05-12)
DX: E10.10 Type 1 diabetes mellitus with ketoacidosis without coma (principal); J96.00 Acute respiratory failure, unspecified whether with hypoxia or hypercapnia; E87.1 Hypo-osmolality and hyponatremia; R65.10 Systemic inflammatory response syndrome (SIRS) of non-infectious origin without acute organ dysfunction; E10.65 Type 1 diabetes mellitus with hyperglycemia; E78.1 Pure hyperglyceridemia; E87.6 Hypokalemia; Z83.3 Family history of diabetes mellitus; Z79.4 Long term (current) use of insulin; Z23 Encounter for immunization
CPT/HCPCS: 36415; 36600; 71045; 71275; 74177; 80048; 80061; 81001; 82043; 82140; 82803; 82962; 83735; 84100; 84484; 84703; 85007; 85025; 85027; 85379; 87040; 90686; 90732; 93005; 93010; 93306; 96374; A6250; J1644; J1815; J1818; J2270; J2405; J2543; J3370; J3475; J3480; J7030; J7050; J7070; Q9967